=== PATIENT | female | born 1950 | race Caucasian/White ===

== ENCOUNTER 2017-09-18 06:34 | Day surgery (SDC) | payer MEDICARE, OTHER ==
[~2017-09-18] VITALS: Ht 154.9 cm; Wt 94.3 kg
[~2017-09-18 06:34] MED LIST: Acetaminophen1 EAC2 PO; Aspir 8181 MG PO; Aspir-Trin325 MG PO; CIPR500 PO; FELO5CR PO; Felodipine ER10 MG PO; Glucophage1000 MG PO; Humalog100 UNIT/1 SC; IBRANCE125 MG PO; INSDET100 SC; INSUASPI SC; INSULIN; Iron Supplemen325 MG PO; LEVSOD50 PO; LEVSOD75 PO; LIRA0.6P SC; LOSA50 PO; LOSARTAN POTAS100 MG PO; LOVA20 PO; LOVA40; METF500 PO; METF500C PO; METR500 PO; PANT40; PANT40 PO; POTCHL10ER PO; THYR60 PO; TRIHYD253A PO; TRIHYD253B PO; VENL150ER PO; VENL25 PO
[2017-09-18] MEDS ORDERED: Faslodex250 MG/5 M (07:03)
[2017-09-18] MEDS ORDERED: XGEVA120 MG/1.7 (07:03)
[2017-09-18] MEDS ORDERED: ASPI81CH PO (07:04)
[2017-09-18] MEDS ORDERED: LOVA40 PO (07:04)
[2017-09-18] MEDS ORDERED: INSDET100 (07:05)
== END 2017-09-18 09:02 | disposition home or self-care (01) ==
LOC: ORSCSDS 06:34
PROVIDERS: Ophthalmology
PROC: 08RJ3JZ Replacement of Right Lens with Synthetic Substitute, Percutaneous Approach (ICD-10-PCS; principal; 2017-09-18 08:00)
DX: H25.11 Age-related nuclear cataract, right eye (principal); E11.9 Type 2 diabetes mellitus without complications; I10 Essential (primary) hypertension; E03.9 Hypothyroidism, unspecified; Z79.4 Long term (current) use of insulin; Z79.899 Other long term (current) drug therapy
CPT/HCPCS: 82947; J2250; J3010; J3301; J7040; V2632

== ENCOUNTER 2017-12-04 06:19 | Day surgery (SDC) | payer MEDICARE, OTHER ==
[~2017-12-04] VITALS: Ht 154.9 cm; Wt 92.7 kg
[~2017-12-04 06:19] MED LIST changes: +ASPI81CH PO; +Faslodex250 MG/5 M; +INSDET100; +LOVA40 PO; +XGEVA120 MG/1.7
== END 2017-12-04 08:07 | disposition home or self-care (01) ==
LOC: ORSCSDS 06:19
PROVIDERS: Ophthalmology
PROC: 08RK3JZ Replacement of Left Lens with Synthetic Substitute, Percutaneous Approach (ICD-10-PCS; principal; 2017-12-04 07:30)
DX: H25.12 Age-related nuclear cataract, left eye (principal); E11.9 Type 2 diabetes mellitus without complications; I10 Essential (primary) hypertension; E03.9 Hypothyroidism, unspecified; Z79.4 Long term (current) use of insulin; Z79.899 Other long term (current) drug therapy
CPT/HCPCS: 82947; J2250; J3301; J7040; V2632

== ENCOUNTER → 2018-08-04 | Outpatient (CLI) | payer MEDICARE, OTHER | END | disposition home or self-care (01) | LOC: LAB SHORT 12:03 → LAB EV 12:03 | DX: N39.0 Urinary tract infection, site not specified (principal) | CPT/HCPCS: 87086 ==

== ENCOUNTER 2020-06-18 03:44 | Inpatient (IN) | payer MEDICARE ==
[~2020-06-18] VITALS: Ht 154.9 cm; Wt 94.0 kg
[~2020-06-18 03:44] MED LIST changes: -ASPI81CH PO; -Faslodex250 MG/5 M; -IBRANCE125 MG PO; -INSDET100; -LOSA50 PO; -LOVA40 PO; -METF500C PO; -PANT40; -TRIHYD253B PO; -XGEVA120 MG/1.7
[2020-06-18 04:11] LABS: BASOPHILS ABSOLUTE AUTO 0.08 K/mm3 (0.00-0.23); BASOPHILS PERCENT AUTO 1 % (0-2); EOSINOPHILS ABSOLUTE AUTO 0.01 K/mm3 (0.00-0.68); EOSINOPHILS PERCENT AUTO 0 % (0-6); Hematocrit 24.7 % (33.0-51.0); Hemoglobin 7.5 g/dL (11.5-16.0); IMMATURE GRAN ABSOLUTE AUTO 0.05 K/mm3 (0.00-0.10); IMMATURE GRAN PERCENT AUTO 1 % (0-1); LYMPHOCYTES ABSOLUTE AUTO 0.85 K/mm3 (0.84-5.20); LYMPHOCYTES PERCENT AUTO 11 % (21-46); MONOCYTES ABSOLUTE AUTO 0.89 K/mm3 (0.16-1.47); MONOCYTES PERCENT AUTO 12 % (4-13); Mean Corpuscular HGB 35.2 pg (26.0-34.0); Mean Corpuscular HGB Conc 30.4 g/dL (31.5-36.5); Mean Corpuscular Volume 116 fL (80-100); Mean Platelet Volume 11.4 fL (9.1-12.4); NEUTROPHILS ABSOLUTE AUTO 5.85 K/mm3 (1.96-9.15); NEUTROPHILS PERCENT AUTO 76 % (41-73); NRBC ABSOLUTE 0.05 K/mm3 (0.00-0.02); NRBC Auto 0.6 /100 WBC (0.0-0.2); Platelet Count 207 K/mm3 (150-400); RDW Coefficient Variation 16.6 % (11.7-14.2); RDW Standard Deviation 71.6 fL (35.1-46.3); Red Blood Cell Count 2.13 M/mm3 (3.80-5.20); White Blood Cell Count 7.73 K/mm3 (4.00-11.30)
[2020-06-18 04:32] LABS: Alanine Aminotransfer (ALT/SGP 40 U/L (12-78); Albumin, Blood 3.1 g/dL (3.4-5.0); Albumin/Globulin Ratio 0.6 (0.8-1.8); Alk Phos 255 U/L (50-136); Anion Gap 5 mmol/L (6-16); Aspartate Aminotrans (AST/SGOT 59 U/L (12-37); Bilirubin, Total 0.9 mg/dL (0.1-1.0); Blood Urea Nitrogen 24 mg/dL (8-24); Bun/Creatinine Ratio 15.7 (12.0-20.0); CO2, Blood 24 mmol/L (21-32); Calcium, Blood 8.6 mg/dL (8.5-10.1); Chloride, Blood 111 mmol/L (98-108); Creatinine, Blood 1.53 mg/dL (0.40-1.00); Globulin, Blood 4.8 g/dL (2.2-4.0); Glomerular Filtration Rate 35 (60-); Glucose, Blood 134 mg/dL (70-99); Sodium, Blood 140 mmol/L (136-145); Total Protein, Blood 7.9 g/dL (6.4-8.2); Troponin I <0.015 ng/mL (0.000-0.040)
[2020-06-18] MEDS ORDERED: FOLBIC PO (13:57)
[2020-06-18] MEDS ORDERED: POTCHL10ER PO (13:59)
[2020-06-18] MEDS ORDERED: LOSARTAN POTAS100 M1 PO (14:01)
[2020-06-18] MEDS ORDERED: LEVSOD100 PO (14:01)
[2020-06-18] MEDS ORDERED: PANT40 PO (14:02)
[2020-06-18] MEDS ORDERED: VENL150ER PO (14:02)
[2020-06-18] MEDS ORDERED: Felodipine ER10 MG PO (14:03)
[2020-06-18] MEDS ORDERED: GLUCOPHAGE1000 M1 PO (14:03)
[2020-06-18] MEDS ORDERED: DYAZIDE 37.5-21 EACH PO (14:04)
[2020-06-18] MEDS ORDERED: IBRANCE125 MG PO (14:05)
[2020-06-18] MEDS ORDERED: XGEVA120 MG/1.1 SC (14:08)
[2020-06-18] MEDS ORDERED: FASLODEX250 MG/5 M IM (14:10)
[2020-06-18] MEDS ORDERED: LOVA40 PO (14:11)
[2020-06-18] MEDS ORDERED: ASPIR 8181 M1 PO (14:11)
[2020-06-18] MEDS ORDERED: LEVEMIR100 UNIT/1 SC (14:12)
[2020-06-18] MEDS ORDERED: NOVOLOG FL100 UNIT/3 SC (14:17)
[2020-06-18] MEDS ORDERED: PRESERVISION A1 EACH PO (14:21)
[2020-06-18] MEDS ORDERED: ALPR.25 PO (14:58)
--- NOTE | 2020-06-18 18:52 | NUR ---
SHIFT NOTE PT ARRIVED FROM ER THIS EVENING WITH ACUTE ON CHRONIC COPD EXACERBATION AND RESP FAILURE. PT BREATHING WITH PURSED LIPS, SKIN PWD AND INTACT. ANGI OLIVERA FULL SENTENCES, ARRIVES ON 3L 02 VIA IA. DENIES CP. REPORTS SOB BEGAN A FEW DAYS AGO BUT HAS BEEN STEADILY PROGRESSING FOR A FEW WEEKS. VSS. MEDICATION LIST IS UPDATED PER HOME LIST. SOME 2+ EDEMA NOTED TO BLE, SKIN PINK AND DRY. GOOD CAP REFILL ALL 4 EXTREMETIES. PT A/O X4.
--- NOTE | 2020-06-19 03:40 | NUR ---
SHIFT SUMMARY RECIEVED REPORT FROM TRACIE MULLINS, PCU. ARRIVED TO MEDICAL UNIT VIA WHEELCHAIR @ 2206; MINIMAL TX ASSISTANCE REQUIRED. ORIENTED TO NEW ROOM/SURROUNDINGS AND CALL SYSTEM. A/O, ABLE TO MAKE NEEDS KNOWN. COOPERATIVE WITH CARES. CALLS AND ANSWERS QUESTIONS APPROPRIATELY. NO C/O PAIN/DISCOMFORT. REMAINS ON 2L VIA NC WITH SPO2 >90%, BECOMES DYSPNEIC WITH TRANSFERS; HOWEVER RECOVERS QUICKLY. DID NOT APPEAR TO REST MUCH OVERNIGHT. VSS/AFEBRILE. NO ACUTE CHANGES NOTED. BED REMAINS IN LOWEST POSITION. CALL LIGHT AND BELONGINGS WITHIN REACH. WCTM. REPORT TO JANE MULLINS.
[2020-06-19 05:48] LABS: Hemoglobin 8.3 g/dL (11.5-16.0); Mean Corpuscular HGB 34.4 pg (26.0-34.0); Mean Corpuscular HGB Conc 30.7 g/dL (31.5-36.5); Mean Corpuscular Volume 112 fL (80-100); Mean Platelet Volume 11.7 fL (9.1-12.4); NRBC ABSOLUTE 0.06 K/mm3 (0.00-0.02); NRBC Auto 0.4 /100 WBC (0.0-0.2); Platelet Count 206 K/mm3 (150-400); RDW Coefficient Variation 22.5 % (11.7-14.2); RDW Standard Deviation 91.6 fL (35.1-46.3); Red Blood Cell Count 2.41 M/mm3 (3.80-5.20); White Blood Cell Count 14.66 K/mm3 (4.00-11.30)
[2020-06-19 06:16] LABS: Calcium, Blood 8.3 mg/dL (8.5-10.1); Creatinine, Blood 1.71 mg/dL (0.40-1.00); Potassium, Blood 4.8 mmol/L (3.5-5.5)
--- NOTE | 2020-06-19 16:33 | NUR ---
ECHOCARDIOGRAM COMPLETED
--- NOTE | 2020-06-19 18:41 | NUR ---
SHIFT SUMMARY- PT STATED SHE FEELS MUCH BETTER TODAY, PT BECOMES VERY OUT OF BREATH WITH TRIPS TO THE BATHROOM AND OFTEN DOES NOT GO WHEN SHE GETS THERE. PT DID VOID THIS EVENING 500ML OF URINE. IV LASIX GIVEN EARLIER IN THE SHIFT AND NEW OT DOSE FOR THIS EVENING, PT SITTING UP IN BED, CALL LIGHT IN REACH SPOUSE AT THE BEDSIDE. PT ALERT AND ORIETNTED 1PA TO THE BATHROOM. PT HAD AN ECHO THIS AFTERNOON.
--- NOTE | 2020-06-20 03:38 | NUR ---
SHIFT SUMMARY A/O, ABLE TO MAKE NEEDS KNOWN. COOPERATIVE WITH CARE. CALLS AND ANSWERS QUESTIONS APPROPRIATELY. NO C/O PAIN/DISCOMFORT. REMAINS ON 2L VIA NC; WITH SPO2 >90%; RT INVOLVED IN CARE. CONTINUES TO HAVE DYSPNEIC EPISODES WHEN GETTING UP TO THE BATHROOM; DOES RECOVER QUICKLY. REQUIRES 1P SBA TO BATHROOM. VSS/AFEBRILE. DID NOT APPEAR TO REST OVERNGIHT. NO ACUTE CHANGES NOTED OVERNIGHT. BED REMAINS IN LOWEST POSITION. CALL LIGHT AND BELONGINGS WITHIN REACH. WCTM. REPORT TO ONCOMING RN.
[2020-06-20 06:30] LABS: Bun/Creatinine Ratio 31.4 (12.0-20.0); Calcium, Blood 8.4 mg/dL (8.5-10.1); Creatinine, Blood 1.75 mg/dL (0.40-1.00); Potassium, Blood 4.3 mmol/L (3.5-5.5)
--- NOTE | 2020-06-20 18:35 | NUR ---
SHIFT SUMMARY EDDIE HAD EX- VISIT HER TODAY. SBA TO BR, CALLED APPROPRIATELY. EDEMATOUS BLE, GOT TWO ONE TIME DOSES IV LASIX WITH FAIRLY GOOD OUTPUT. VERY DYSPNEIC ON EXERTION TO GO TO BATHROOM, BUT NO DESATS BELOW 90%, SO CONTINUES ON ROOM AIR. TELE SHOWED SINUS TACH. TOOK MEDS PRESCRIBED. CALL LIGHT IN REACH, [facility]
--- NOTE | 2020-06-21 04:47 | NUR ---
SHIFT SUMMARY AOX4. VSS. TELE ST c PAC @111. DENIES PAIN OR N/V. VERY DYSPNIC c AMBULATION TO RESTROOM. SPO2 >90% ON RA. LUNGS HAVE EXP WHEEZES IN UPPER LOBES & CRACKLES IN BASES. DENIES DYSPNEA WHEN @REST. +2 EDEMA BLE. UP TO RESTROOM c 1 ASSIST & FWW. HAD 2200ML URINE OUTPUT. HS CBG @238. CALL LIGHT IN REACH.
[2020-06-21 05:31] LABS: BASOPHILS ABSOLUTE AUTO 0.05 K/mm3 (0.00-0.23); BASOPHILS PERCENT AUTO 0 % (0-2); EOSINOPHILS PERCENT AUTO 0 % (0-6); Hematocrit 25.9 % (33.0-51.0); Hemoglobin 8.2 g/dL (11.5-16.0); IMMATURE GRAN ABSOLUTE AUTO 0.64 K/mm3 (0.00-0.10); IMMATURE GRAN PERCENT AUTO 5 % (0-1); LYMPHOCYTES ABSOLUTE AUTO 0.62 K/mm3 (0.84-5.20); LYMPHOCYTES PERCENT AUTO 5 % (21-46); MONOCYTES ABSOLUTE AUTO 1.04 K/mm3 (0.16-1.47); MONOCYTES PERCENT AUTO 8 % (4-13); Mean Corpuscular HGB Conc 31.7 g/dL (31.5-36.5); Mean Corpuscular Volume 108 fL (80-100); Mean Platelet Volume 11.4 fL (9.1-12.4); NEUTROPHILS ABSOLUTE AUTO 10.75 K/mm3 (1.96-9.15); NEUTROPHILS PERCENT AUTO 82 % (41-73); NRBC ABSOLUTE 0.34 K/mm3 (0.00-0.02); NRBC Auto 2.6 /100 WBC (0.0-0.2); Platelet Count 240 K/mm3 (150-400); RDW Coefficient Variation 21.1 % (11.7-14.2); RDW Standard Deviation 82.6 fL (35.1-46.3); Red Blood Cell Count 2.41 M/mm3 (3.80-5.20)
[2020-06-21 06:11] LABS: Calcium, Blood 8.6 mg/dL (8.5-10.1); Creatinine, Blood 1.76 mg/dL (0.40-1.00); Potassium, Blood 3.9 mmol/L (3.5-5.5)
--- NOTE | 2020-06-21 10:49 | NUR ---
PHYSICIAN NOTIFICATION/PT TACHYCARDIA THIS RN NOTIFIED DR. SOLOMON OF PT EXPERIENCING TACHYCARDIA OF 157 AND BP OF 177/69 AROUND 1030. THIS RN RECIEVED ORDERS FOR STAT EKG AND RESIDENT CAME TO SEE PT. EKG OBTAINED BY [facility]. THIS RN RECIEVED AN ORDER FOR PROCARDIA XL PER EMAR. THIS RN WILL CONTINUE TO MONITOR PT STATUS.
--- NOTE | 2020-06-21 17:26 | NUR ---
Initial spiritual care note: Mrs. Pearson was pleasantly dismissive of machine tack puller visit. She said she is feeling better and is hopeful for return to baseline. No concerns present. I will remain available.
--- NOTE | 2020-06-21 19:15 | NUR ---
SHIFT SUMMARY PT IS AOX4. PT DENIES N/V, PAIN. PT EXHIBITS SOB WITH EXERTION. PT IS ONE PERSON ASSIST WITH FWW. PT WORKED WITH PHYSICAL THERAPY THIS AM, BUT THE SESSION WAS BRIEF DUE TO PT HR OF 160S AND BP OF 180/60S. SEE NOTE. EKG OBTAINED AND PT FOUND TO BE IN SVT. PT HR STABLE THIS THERESA IN 90S-100S. PT IN THROUGHOUT SHIFT. PT TELE RUNNING AT SINUS TACH 101. PT IS IN BED, CALL LIGHT IN REACH, BED IN LOW POSITION.
--- NOTE | 2020-06-22 04:23 | NUR ---
SHIFT SUMMARY NO ACUTE CHANGES THIS SHIFT. AOX4. VSS. TELE NSR c PAC @97. DENIES PAIN, N/V. STATES "BREATHING IS BETTER", STILL IS DYSPNIC c AMBULATION. SPO2 >90% ON RA. E/U RESPIRATIONS @REST. LUNGS ARE DIM c CRACKLES IN BASES. PLAN TO POSSIBLY DC TODAY. CALL LIGHT IN REACH, MAKES NEEDS KNOWN.
[2020-06-22 05:41] LABS: Hematocrit 26.2 % (33.0-51.0); Hemoglobin 8.1 g/dL (11.5-16.0); Mean Corpuscular HGB 33.8 pg (26.0-34.0); Mean Corpuscular HGB Conc 30.9 g/dL (31.5-36.5); Mean Corpuscular Volume 109 fL (80-100); Mean Platelet Volume 10.8 fL (9.1-12.4); NRBC ABSOLUTE 0.68 K/mm3 (0.00-0.02); Platelet Count 239 K/mm3 (150-400); RDW Standard Deviation 83.4 fL (35.1-46.3); White Blood Cell Count 13.66 K/mm3 (4.00-11.30)
[2020-06-22 05:59] LABS: Bun/Creatinine Ratio 34.1 (12.0-20.0); Calcium, Blood 8.9 mg/dL (8.5-10.1); Creatinine, Blood 1.79 mg/dL (0.40-1.00); Potassium, Blood 4.3 mmol/L (3.5-5.5)
[2020-06-22 06:12] LABS: BAND PERCENT MAN 1 % (0-8); BASOPHILS PERCENT MAN 0 % (0-2); EOSINOPHILS PERCENT MAN 0 % (0-6); LYMPHOCYTES ABSOLUTE MAN 0.68 K/mm3 (0.84-5.20); LYMPHOCYTES PERCENT MAN 5 % (21-46); MONOCYTES ABSOLUTE MAN 1.09 K/mm3 (0.16-1.47); MONOCYTES PERCENT MAN 8 % (4-13); NEUTROPHILS ABSOLUTE MAN 11.88 K/mm3 (1.96-9.15); SEG NEUTROPHILS PERCENT MAN 86 % (41-73); TOTAL CELLS COUNTED 100
[2020-06-22] MEDS ORDERED: ALBU90OI INH (12:32)
[2020-06-22] MEDS ORDERED: FURO40 PO (12:33)
--- NOTE | 2020-06-22 18:55 | NUR ---
DISCHARGE NOTE PT IS AOX4. PT IV REMOVED BY THIS RN. PT ASSISTED INTO HOME CLOTHING BY . THIS RN REVIEWED DC INSTRUCTIONS WITH PT AND PT VERBALIZED UNDERSTANDING. BELONGINGS WITH PT ON DC. PT ASSISTED INTO WHEELCHAIR AND LEFT UNIT AT APPROXIMATELY 1845.
== END 2020-06-22 18:55 | disposition home or self-care (01) | DRG 291 ==
LOC: ER 03:44 → ERHOLD 05:55 → PCU 15:41 → MEDS 22:06
PROVIDERS: Emergency Medicine; Family Medicine; Hospitalist; ADMIT Internal Medicine
DX: I13.0 Hypertensive heart and chronic kidney disease with heart failure and stage 1 through stage 4 chronic kidney disease, or unspecified chronic kidney disease (principal); I50.31 Acute diastolic (congestive) heart failure; J96.01 Acute respiratory failure with hypoxia; J18.9 Pneumonia, unspecified organism; J44.1 Chronic obstructive pulmonary disease with (acute) exacerbation; J44.0 Chronic obstructive pulmonary disease with (acute) lower respiratory infection; Z20.828 Contact with and (suspected) exposure to other viral communicable diseases; N18.30 Chronic kidney disease, stage 3 unspecified; E11.22 Type 2 diabetes mellitus with diabetic chronic kidney disease; D64.9 Anemia, unspecified; E03.9 Hypothyroidism, unspecified; E66.01 Morbid (severe) obesity due to excess calories; I27.20 Pulmonary hypertension, unspecified; Z79.4 Long term (current) use of insulin; Z85.3 Personal history of malignant neoplasm of breast
CPT/HCPCS: 36415; 36430; 71045; 80048; 80053; 82947; 83880; 84145; 84484; 85025; 85027; 86850; 86900; 86901; 86923; 93005; 93010; 93306; 94640; 94644; 94760; 96374; 96376; 97116; 97162; 97530; 99285-25; A9270; A9270-GY; C9113; G0008; J0696; J1644; J1815; J1940; J2930; J7512; P9016; Q2038; U0004

== ENCOUNTER 2020-08-07 09:23 | Inpatient (IN) | payer MEDICARE, OTHER ==
[~2020-08-07] VITALS: Ht 154.9 cm; Wt 108.2 kg
[~2020-08-07 09:23] MED LIST changes: +ALBU90OI INH; +ALPR.25 PO; +ASPIR 8181 M1 PO; +DYAZIDE 37.5-21 EACH PO; +FASLODEX250 MG/5 M IM; +FOLBIC PO; +FURO40 PO; +GLUCOPHAGE1000 M1 PO; +IBRANCE125 MG PO; +LEVEMIR100 UNIT/1 SC; +LEVSOD100 PO; +LOSARTAN POTAS100 M1 PO; +LOVA40 PO; +NOVOLOG FL100 UNIT/3 SC; +PRESERVISION A1 EACH PO; +XGEVA120 MG/1.1 SC
[2020-08-07 10:41] LABS: Albumin/Globulin Ratio 0.7 (0.8-1.8); Bilirubin, Total 0.7 mg/dL (0.1-1.0); Bun/Creatinine Ratio 16.6 (12.0-20.0); Calcium, Blood 8.6 mg/dL (8.5-10.1); Creatinine, Blood 1.51 mg/dL (0.40-1.00); Globulin, Blood 4.2 g/dL (2.2-4.0); Potassium, Blood 3.7 mmol/L (3.5-5.5); Total Protein, Blood 7.2 g/dL (6.4-8.2)
[2020-08-07 10:52] LABS: Troponin I 0.57 ng/mL (0.000-0.040)
[2020-08-07] MEDS ORDERED: ALPR.25 PO (11:00)
[2020-08-07] MEDS ORDERED: [UNRECOGNIZED DRUG - REMARK] (11:03)
[2020-08-07 11:32] LABS: BASOPHILS ABSOLUTE AUTO 0.01 K/mm3 (0.00-0.23); BASOPHILS PERCENT AUTO 1 % (0-2); EOSINOPHILS PERCENT AUTO 0 % (0-6); Hematocrit 20.9 % (33.0-51.0); Hemoglobin 6.7 g/dL (11.5-16.0); IMMATURE GRAN ABSOLUTE AUTO 0.01 K/mm3 (0.00-0.10); IMMATURE GRAN PERCENT AUTO 1 % (0-1); LYMPHOCYTES ABSOLUTE AUTO 0.18 K/mm3 (0.84-5.20); LYMPHOCYTES PERCENT AUTO 9 % (21-46); MONOCYTES ABSOLUTE AUTO 0.13 K/mm3 (0.16-1.47); MONOCYTES PERCENT AUTO 7 % (4-13); Mean Corpuscular HGB 34.9 pg (26.0-34.0); Mean Corpuscular HGB Conc 32.1 g/dL (31.5-36.5); Mean Corpuscular Volume 109 fL (80-100); Mean Platelet Volume 12.2 fL (9.1-12.4); NEUTROPHILS ABSOLUTE AUTO 1.63 K/mm3 (1.96-9.15); NEUTROPHILS PERCENT AUTO 83 % (41-73); Platelet Count 127 K/mm3 (150-400); RDW Coefficient Variation 20.8 % (11.7-14.2); RDW Standard Deviation 83.6 fL (35.1-46.3); Red Blood Cell Count 1.92 M/mm3 (3.80-5.20); White Blood Cell Count 1.96 K/mm3 (4.00-11.30)
[2020-08-07] MEDS ORDERED: IBRANCE125 M1 PO (11:46)
[2020-08-07] MEDS ORDERED: METO50ER PO (11:46)
[2020-08-07 12:56] LABS: Percent Saturation 22.2 % (15.0-50.0)
--- NOTE | 2020-08-07 18:05 | NUR ---
PT ARRIVED IN THE UNIT VIA HOSPITAL BED SLIDE SHEET FOR TRANSFER, REPORT RECEIVED FROM HARPREET LOZANO. PT IS HERE FOR ACUTE DIASTOLIC CHF, PT WAS ON 4L OF O2 UPON ARRIVAL SAT ABOVE 92%, PT SOB HAS EXP WHEEZES BILAT, CRACKLES ON RIGHT LOBE, PT ABLE TO TOLERATE BUT LATER REQUESTED TO GET BACK ON BIPAP. WAS ABLE TO TAKE BLOOD PRESSURE MEDS WITHOUT ANY ISSUES, BP SYSTOLIC ELEVATED AT 190'S, PT WAS GIVEN HYDRALAZINE DOSE IN THE ER. HRR ST AT 100'S, AFEBRILE. PT HAS 2+ PITTING EDEMA ON BLE, ANOTHER DOSE OF LASIX 40MG WAS GIVEN. PT USES BEDPAN FOR NOW FOR TOILETING SINCE UNABLE TO TOLERATED GETTING UP IN THE COMMODE YET, ATTENDS IN PLACE. DENIES ANY CHEST PAIN AT THIS TIME. ALERT AND ORIENTED AT BASELINE. ABLE TO MAKE NEEDS KNOWN, CALLS APPROPRIATELY, WILL MONITOR
--- NOTE | 2020-08-07 21:38 | NUR ---
ASSUMED CARE OF PATIENT AT APPROXIMATELY 1900 FROM VARGAS Colby RN. PATIENT ALERT AND ORIENTED; ONLY ABLE TO SPEAK IN SHORT SENTENCES AND NOT ABLE TO EAT DINNER DUE TO SHORTNESS OF BREATH WHILE LAYING IN BED; PATIENT NEEDED TO BE PLACED ON BIPAP WHILE TURNING TO GET ON BEDPAN; TOO SHORT OF BREATH TO GET UP. PATIENT DENIES PAIN, DIZZINESS AND NAUSEA. NSR ON TELE; OXYGEN SATURATION ABOVE 90% ON BIPAP 05/10; 25% FIO2 OR 4LPM VIA NC. 2X PIV S/L. AUTO BODY MECHANIC APPRENTICE COMPLETED CONSENTS, ADMISSION HX AND MEDICATION REC. PATIENT CURRENTLY RESTING IN BED; CALL LIGHT IN REACH; BED IN LOWEST POSISTION; WILL CONTINUE TO MONITOR AND ASSESS UNTIL END OF SHIFT.
--- NOTE | 2020-08-08 01:12 | NUR ---
PATIENT HYPERTENSIVE AFTER PRN HYDRALAZINE IV; DR. BECKER NOTIFIED; ORDERS FOR PRN LABETOLOL. PATIENT ANXIOUS; REPROTS TAKES XANAX AT HOME; ORDERS FOR IV ATIVAN WHILE ON BIPAP. PATIENT SHORT OF BREATH USING BEDPAN EVERY 20-30 MINUTES; ORDER FOR PUREWICK WHILE SHORT OF BREATH USING BIPAP. PATIENT HAD RYTHYM CHANGE FOR ABOUT 15 MINUTES ([phone]) ATRIAL TACHYCARDIA.
[2020-08-08 02:06] LABS: BASOPHILS ABSOLUTE AUTO 0.02 K/mm3 (0.00-0.23); BASOPHILS PERCENT AUTO 1 % (0-2); EOSINOPHILS ABSOLUTE AUTO 0.01 K/mm3 (0.00-0.68); EOSINOPHILS PERCENT AUTO 0 % (0-6); Hematocrit 25.5 % (33.0-51.0); Hemoglobin 8.3 g/dL (11.5-16.0); Mean Corpuscular HGB 33.6 pg (26.0-34.0); Mean Corpuscular HGB Conc 32.5 g/dL (31.5-36.5); Mean Platelet Volume 11.2 fL (9.1-12.4); Platelet Count 122 K/mm3 (150-400); RDW Coefficient Variation 23.2 % (11.7-14.2); RDW Standard Deviation 87.4 fL (35.1-46.3); Red Blood Cell Count 2.47 M/mm3 (3.80-5.20); White Blood Cell Count 2.37 K/mm3 (4.00-11.30)
[2020-08-08 02:07] LABS: IMMATURE GRAN ABSOLUTE AUTO 0.02 K/mm3 (0.00-0.10); IMMATURE GRAN PERCENT AUTO 1 % (0-1); LYMPHOCYTES ABSOLUTE AUTO 0.16 K/mm3 (0.84-5.20); LYMPHOCYTES PERCENT AUTO 7 % (21-46); MONOCYTES ABSOLUTE AUTO 0.12 K/mm3 (0.16-1.47); MONOCYTES PERCENT AUTO 5 % (4-13); Mean Corpuscular Volume 103 fL (80-100); NEUTROPHILS ABSOLUTE AUTO 2.04 K/mm3 (1.96-9.15); NEUTROPHILS PERCENT AUTO 86 % (41-73)
[2020-08-08 02:38] LABS: Magnesium, Blood 1.5 mg/dL (1.6-2.4)
[2020-08-08 02:39] LABS: Albumin/Globulin Ratio 0.7 (0.8-1.8); Bun/Creatinine Ratio 17.6 (12.0-20.0); Calcium, Blood 8.2 mg/dL (8.5-10.1); Creatinine, Blood 1.53 mg/dL (0.40-1.00); Globulin, Blood 4.3 g/dL (2.2-4.0); Phosphorus, Blood 2.7 mg/dL (2.5-4.9); Potassium, Blood 3.3 mmol/L (3.5-5.5); Total Protein, Blood 7.3 g/dL (6.4-8.2)
[2020-08-08 02:48] LABS: Troponin I 0.733 ng/mL (0.000-0.040)
--- NOTE | 2020-08-08 06:27 | NUR ---
PATIENT SLEPT ABOUT EIGHT HOURS LAST NIGHT. PUREWICK IN PLACE DRAINING WELL. BLOOD PRESSURE IMPOVED. 160'S SBP. PATIENT'S MAG WAS 1.[address] BECKER NOTIFED; ORDERS RECIEVED. PATIENT SLEPT WITH BIPAP FOR MOST OF THE NIGHT.
[2020-08-08 11:12] LABS: Hematocrit 26.4 % (33.0-51.0); Hemoglobin 8.5 g/dL (11.5-16.0)
--- NOTE | 2020-08-08 12:14 | NUR ---
Echocardiogram performed.
[2020-08-08 17:17] LABS: Hematocrit 24.7 % (33.0-51.0); Hemoglobin 7.9 g/dL (11.5-16.0)
--- NOTE | 2020-08-08 18:28 | NUR ---
PT SUMMARY: PT REMAINED ALERT AND ORIENTED, VITALS HRR SR 90'S, BP SYSTOLIC 140-150'S, SATS ABOVE 90% ON 4L OF O2 ALTERNATING BIPAP WITH 35% FIO2 PT DESATS TO 86% WITH EXERTION (MOVING AND TURNING IN BED) PT ABLE TO RECOVERS QUICK. AFEBRILE. PT STILL HAS BILAT WHEEZING DUONEB ORDERED SCHEDULE Q4HRS, ADDITIONAL 40MG DOSE OF LASIX WAS GIVEN TODAY PT HAD ALMOST 2L URINE OUTPUT, PUREWICK CHANGED FOR THE SHIFT, DRAINING VIA WALL SUCTION. ECHO DONE TODAY PT SHOWS EF 61%, DR RAMOS ALSO SAW PT TODAY MADE SOME MEDICATION CHANGES. PT ON 1.5L FLUID RESTRICTION PT COMPLIANT. NO BM TODAY UNABLE TO COLLECT STOOL SAMPLE, PT WITH DECREASE APPETITE OFFERED GLUCERNA FOR LUNCH. PT HAS BEEN IN BED ALL SHIFT REPOSTIONED Q2 HRS. DENIES ANY PAIN FOR THE SHIFT. PT NOW RESTING WITH BIPAP ON, CALL LIGHTS IN REACH, WILL REPORT TO ONCOMING SHIFT
[2020-08-09 04:15] LABS: BASOPHILS ABSOLUTE AUTO 0.04 K/mm3 (0.00-0.23); BASOPHILS PERCENT AUTO 2 % (0-2); EOSINOPHILS ABSOLUTE AUTO 0.02 K/mm3 (0.00-0.68); EOSINOPHILS PERCENT AUTO 1 % (0-6); Hemoglobin 7.6 g/dL (11.5-16.0); Mean Corpuscular HGB 32.8 pg (26.0-34.0); Mean Corpuscular HGB Conc 31.7 g/dL (31.5-36.5); Mean Corpuscular Volume 103 fL (80-100); Mean Platelet Volume 10.7 fL (9.1-12.4); Platelet Count 132 K/mm3 (150-400); RDW Standard Deviation 86.8 fL (35.1-46.3); Red Blood Cell Count 2.32 M/mm3 (3.80-5.20); White Blood Cell Count 2.58 K/mm3 (4.00-11.30)
[2020-08-09 04:17] LABS: IMMATURE GRAN ABSOLUTE AUTO 0.01 K/mm3 (0.00-0.10); IMMATURE GRAN PERCENT AUTO 0 % (0-1); LYMPHOCYTES ABSOLUTE AUTO 0.24 K/mm3 (0.84-5.20); LYMPHOCYTES PERCENT AUTO 9 % (21-46); MONOCYTES ABSOLUTE AUTO 0.21 K/mm3 (0.16-1.47); MONOCYTES PERCENT AUTO 8 % (4-13); NEUTROPHILS ABSOLUTE AUTO 2.06 K/mm3 (1.96-9.15); NEUTROPHILS PERCENT AUTO 80 % (41-73)
[2020-08-09 04:30] LABS: Albumin, Blood 2.9 g/dL (3.4-5.0); Anion Gap 4 mmol/L (6-16); Blood Urea Nitrogen 31 mg/dL (8-24); Bun/Creatinine Ratio 20.1 (12.0-20.0); CO2, Blood 32 mmol/L (21-32); Calcium, Blood 8.3 mg/dL (8.5-10.1); Chloride, Blood 106 mmol/L (98-108); Creatinine, Blood 1.54 mg/dL (0.40-1.00); Glomerular Filtration Rate 35 (60-); Glucose, Blood 148 mg/dL (70-99); Phosphorus, Blood 2.8 mg/dL (2.5-4.9); Potassium, Blood 3.5 mmol/L (3.5-5.5); Sodium, Blood 142 mmol/L (136-145)
--- NOTE | 2020-08-09 05:16 | NUR ---
SHIFT SUMMARY PT SLEPT T/O SHIFT. PT ALERT AND ORIENTED X 4. OXYGEN SATURATION MAINTAINED ABOVE 92% ON 5 L OF OXYGEN VIA NC AND BIPAP AT 40% FIO2. HR STABLE. BP STABLE. PT REPORTS NO CP OR PRESSURE. PUREWICK IN PLACE D/T PT'S INCREASING SOB. PT ABLE TO TURN SELF IN BED NEEDED. WILL CONTINUE TO MONITOR UNTIL REPORT GIVEN TO DAYSHIFT RN.
--- NOTE | 2020-08-09 06:17 | NUR ---
ARIANACK CHANGED PUREWICK CHANGED AT 0600
[2020-08-09 13:13] LABS: Total Protein, Blood 7.4 g/dL (6.4-8.2)
[2020-08-09 13:51] LABS: International Normalized Ratio 1.17; Prothrombin Time Results 12.4 Sec (9.7-11.5)
[2020-08-09 15:19] LABS: Influenza A, PCR Negative (NEGATIVE); Influenza B, PCR Negative (NEGATIVE); Resp Syncytial Virus, PCR Negative (NEGATIVE); SARS-Cov-2 (COVID-19) PCR, MMC Negative (NEGATIVE)
[2020-08-09 17:28] LABS: Automated BF RBC Count 0.002 M/mm3 (0-0); Body Fluid WBC Count 170 /mm3 (0-999)
[2020-08-09 17:37] LABS: Albumin, Body Fluid 1.7 g/dL; Glucose, Body Fluid 187 mg/dL; Lactate Dehydrogenase, Body Fl 117 U/L
[2020-08-09 18:00] LABS: Appearance, Body Fluid Hazy (Clear); Color, Body Fluid Yellow (None-Yellow); Total Cell Count, Body Fluid 100
--- NOTE | 2020-08-09 18:19 | NUR ---
PATIENT ALERT AND ORIENTED THIS SHIFT, PATIENT WAS VISIBLY SHORT OF BREATH THIS SHIFT. PATIENT'S O2 NEEDS INCREASED THIS AFTERNOON, WENT FROM 5 L IN LOW 90S AT START OF SHIFT TO 88-89% AND TURNED UP TO 6-7 L TO MAINTAIN LOW 90S. DR. LANTIGUA CONSULTED FOR PULM PERSPECTIVE, DR. LANTIGUA DID THORACENTESIS AT BEDSIDE, SAMPLES SENT TO LAB FOR ANALYSIS. PATIENT TOLERATED WELL, CONSIDERABLE COUGHING NOTED DURING PROCEDURE. 2.5 L OFF, PATIENT ENDORSED FEELING RELIEF IN WORK OF BREATHING POST-THORA. PATIENT IS ABLE TO ASSIST IN REPOSITIONING ON BED, BEDPAN USED TODAY D/T HIGH WORK OF BREATHING AT REST AND LOW ACTIVITY TOLERANCE. PATIENT IS ALERT AND ORIENTED, PLEASANT AND ENGAGED WITH CARE. PLAN IS FOR ANOTHER THORACENTESIS TOMORROW. DR. KIM CONSULTED FOR POSSIBILITY OF MALIGNANCY R/T PLEURAL EFFUSION AND HX OF CANCER.
[2020-08-09 18:57] LABS: Protein, Body Fluid 3.3 g/dL; Triglycerides, Body Fluid 86 mg/dL
[2020-08-10 03:50] LABS: BASOPHILS ABSOLUTE AUTO 0.04 K/mm3 (0.00-0.23); BASOPHILS PERCENT AUTO 1 % (0-2); EOSINOPHILS ABSOLUTE AUTO 0.02 K/mm3 (0.00-0.68); EOSINOPHILS PERCENT AUTO 1 % (0-6); Hematocrit 23.8 % (33.0-51.0); Hemoglobin 7.4 g/dL (11.5-16.0); Mean Corpuscular HGB Conc 31.1 g/dL (31.5-36.5); Mean Corpuscular Volume 106 fL (80-100); Mean Platelet Volume 11.2 fL (9.1-12.4); Platelet Count 131 K/mm3 (150-400); RDW Coefficient Variation 22.8 % (11.7-14.2); RDW Standard Deviation 87.8 fL (35.1-46.3); Red Blood Cell Count 2.24 M/mm3 (3.80-5.20); White Blood Cell Count 2.76 K/mm3 (4.00-11.30)
[2020-08-10 03:55] LABS: IMMATURE GRAN PERCENT AUTO 0 % (0-1); LYMPHOCYTES ABSOLUTE AUTO 0.28 K/mm3 (0.84-5.20); LYMPHOCYTES PERCENT AUTO 10 % (21-46); MONOCYTES ABSOLUTE AUTO 0.21 K/mm3 (0.16-1.47); MONOCYTES PERCENT AUTO 8 % (4-13); NEUTROPHILS ABSOLUTE AUTO 2.21 K/mm3 (1.96-9.15); NEUTROPHILS PERCENT AUTO 80 % (41-73)
[2020-08-10 04:12] LABS: Albumin, Blood 2.6 g/dL (3.4-5.0); Albumin/Globulin Ratio 0.7 (0.8-1.8); Bilirubin, Total 0.6 mg/dL (0.1-1.0); Bun/Creatinine Ratio 20.1 (12.0-20.0); Calcium, Blood 8.1 mg/dL (8.5-10.1); Creatinine, Blood 1.69 mg/dL (0.40-1.00); Globulin, Blood 3.8 g/dL (2.2-4.0); Potassium, Blood 3.6 mmol/L (3.5-5.5); Total Protein, Blood 6.4 g/dL (6.4-8.2)
--- NOTE | 2020-08-10 05:14 | NUR ---
SHIFT SUMMARY PT TO CT AT BEGINNING OF SHIFT. PT ABLE TO STAND AND PIVOT TO STRETCHER. OXYGEN SATURATION MAINTAINED ABOVE 92% ON 5 L OF OXYGEN VIA NC. PT ABLE TO TURN SELF IN BED. HR REMAINED STABLE. BP REMAINED STABLE. PT ALERT AND ORIENTED X 4. WITHIN RANGE FOR FLUID INTAKE, SEE I&O. PUREWICK IN PLACE WITH BRIEF D/T SOB AND URINARY FREQUENCY. PT REPORTS NO CP OR PRESSURE. SITE FOR THORA C/D/I. WILL CONTINUE TO MONITOR UNTIL REPORT GIVEN TO DAYSASIYA RN.
--- NOTE | 2020-08-10 10:23 | NUR ---
PATIENT RETURNED FROM THORACENTESIS, VSS, ALERT AND ORIENTED, NO SIGNS OF ACUTE DISTRESS, WCTM.
--- NOTE | 2020-08-10 13:52 | NUR ---
Supportive Visit Spoke with Bedside RN Pradip and discussed case. Pradip reports Pt has shown improvement since thoracentesis. No concerns reported at this time. Pt resting in chair upon arrival. Pt denies pain at this time. Pt reports breathing has improved since thoracentesis. Pt reports occasional anxiety and has experienced this for many years. Offered therapeutic listening and answered questions. Discussed considering completing an AD with Pt reporting having one at home that she will consider completing. Pt reports no concerns at this time. Palliative Care will remain available.
--- NOTE | 2020-08-10 15:26 | NUR ---
Advance Directive (AD) education conducted. Upon receiving a referral for AD education, I visit patient. Patient expresses interest and states that she has an old form somewhere but never completed it. I hand patient a new form and explain the purpose of the AD, the different sections and the filing process. Patient states that she will work on it with her family at when she is feeling better.
--- NOTE | 2020-08-10 19:55 | NUR ---
NO ACUTE EVENTS THIS SHIFT. PATIENT WENT FOR THORACENTESIS TODAY, PATIENT REPORTED CONTINUED IMPROVEMENT IN WORK OF BREATHING. PATIENT'S WORK OF BREATHING NOTABLY IMPROVED FROM YESTERDAY START OF SHIFT PRIOR TO FIRST THORACENTESIS. THIS SHIFT PATIENT TITRATED DOWN TO 4 L NC, PATIENT ABLE TO TOLERATE AMBULATION WITH WALKER AND X1 ASSIST TO BEDSIDE COMMODE AND UP IN CHAIR WITH MEALS. PATIENT SHOWED GOOD PO INTAKE TODAY, FLUID RESTRICTION FOLLOWED PER ORDERS.
[2020-08-11 03:58] LABS: BASOPHILS ABSOLUTE AUTO 0.03 K/mm3 (0.00-0.23); BASOPHILS PERCENT AUTO 1 % (0-2); EOSINOPHILS ABSOLUTE AUTO 0.03 K/mm3 (0.00-0.68); EOSINOPHILS PERCENT AUTO 1 % (0-6); Hematocrit 23.6 % (33.0-51.0); Hemoglobin 7.3 g/dL (11.5-16.0); IMMATURE GRAN ABSOLUTE AUTO 0.02 K/mm3 (0.00-0.10); IMMATURE GRAN PERCENT AUTO 1 % (0-1); LYMPHOCYTES ABSOLUTE AUTO 0.23 K/mm3 (0.84-5.20); LYMPHOCYTES PERCENT AUTO 10 % (21-46); MONOCYTES ABSOLUTE AUTO 0.18 K/mm3 (0.16-1.47); MONOCYTES PERCENT AUTO 8 % (4-13); Mean Corpuscular HGB 33.2 pg (26.0-34.0); Mean Corpuscular HGB Conc 30.9 g/dL (31.5-36.5); Mean Corpuscular Volume 107 fL (80-100); Mean Platelet Volume 11.3 fL (9.1-12.4); NEUTROPHILS ABSOLUTE AUTO 1.89 K/mm3 (1.96-9.15); NEUTROPHILS PERCENT AUTO 79 % (41-73); Platelet Count 127 K/mm3 (150-400); RDW Coefficient Variation 22.3 % (11.7-14.2); RDW Standard Deviation 87.2 fL (35.1-46.3); White Blood Cell Count 2.38 K/mm3 (4.00-11.30)
[2020-08-11 04:14] LABS: Bun/Creatinine Ratio 20.2 (12.0-20.0); Calcium, Blood 7.9 mg/dL (8.5-10.1); Creatinine, Blood 2.03 mg/dL (0.40-1.00); Potassium, Blood 3.7 mmol/L (3.5-5.5)
--- NOTE | 2020-08-11 05:41 | NUR ---
SHIFT SUMMARY PT A&O X4. VSS. MONITOR SHOWS NSR, HR 60's. SPO2 > 92% ON 4L NC. PT SLEEPING MAJORITY OF SHIFT. TOLERATING SBA TO BSC WELL. NO EVENTS OVER NIGHT.
--- NOTE | 2020-08-11 18:08 | NUR ---
NO ACUTE EVENTS THIS SHIFT. PATIENT ABLE TO AMBULATE TO BATHROOM WITH WALKER AND STANDBY ASSIST, TOLERATING ACTIVITY WELL. PATIENT TITRATED DOWN TO ROOM AIR TODAY, MINIMAL WORK OF BREATHING NOTED. PATIENT WENT FOR ANOTHER THORACENTESIS AGAIN TODAY, VSS ON RETURN TO UNIT. DR GRIFFIN SAW PATIENT AT BEDSIDE. DR. PICHARDO SAW PATIENT AT BEDSIDE AND DISCUSSED PT'S KIDNEY FX AND PLANS FOR DIURESIS. PATIENT AGREEABLE TO PARTICIPATION IN CARE, MOTIVATED TO PARTICIPATE WITH THERAPY, OUT OF BED FOR MEALS AND FOR STRETCHES OF TIME IN BETWEEN WITH SEVERAL REST BREAKS IN BED.
--- NOTE | 2020-08-11 20:35 | NUR ---
CARE ASSUMPTION PT A&O X4. VSS. SPO2 > 92% ON RA. PT DENIES SOB. MONITOR CURRENTLY SHOWS NSR, HR 60's. DISCUSSED DAY SHIFT EPISODE OF AFIB W/ PT W/ PT DENIAL OF HX OF AFIB. PT NOTED TO BE AFIB, HR 120's FROM [phone] TODAY PER TELEMETRY MONITORING. CONVERSION STRIPS PRINTED & PLACED IN CHART.
[2020-08-12 00:21] LABS: Appearance, Urine Hazy (Clear); Bilirubin, Urine Neg (Neg); Blood, Urine Neg (Neg); Color, Urine Yellow (P-Yellow); Glucose Qualitative, Urine Neg (Neg); Ketones, Urine Neg (Neg); Leukocyte Esterase, Urine 3+ (Neg); Nitrite, Urine Neg (Neg); Protein, Urine 2+ (Neg); Specific Gravity, Urine 1.015 (1.003-1.022); Urobilinogen, Urine NORM (Normal)
[2020-08-12 00:33] LABS: Bacteria Few /hpf; Red Blood Cells, Urine Not Seen /hpf (0-2); Squamous Epithelial Cells Rare /hpf (Few); White Blood Cells, Urine TNTC /hpf (0-5)
[2020-08-12 04:04] LABS: BASOPHILS ABSOLUTE AUTO 0.04 K/mm3 (0.00-0.23); BASOPHILS PERCENT AUTO 2 % (0-2); EOSINOPHILS ABSOLUTE AUTO 0.03 K/mm3 (0.00-0.68); EOSINOPHILS PERCENT AUTO 1 % (0-6); Hematocrit 23.9 % (33.0-51.0); Hemoglobin 7.4 g/dL (11.5-16.0); Mean Corpuscular HGB 33.3 pg (26.0-34.0); Mean Corpuscular Volume 108 fL (80-100); Mean Platelet Volume 10.9 fL (9.1-12.4); Platelet Count 132 K/mm3 (150-400); RDW Coefficient Variation 21.8 % (11.7-14.2); RDW Standard Deviation 85.3 fL (35.1-46.3); Red Blood Cell Count 2.22 M/mm3 (3.80-5.20); White Blood Cell Count 2.13 K/mm3 (4.00-11.30)
[2020-08-12 04:06] LABS: IMMATURE GRAN ABSOLUTE AUTO 0.02 K/mm3 (0.00-0.10); IMMATURE GRAN PERCENT AUTO 1 % (0-1); LYMPHOCYTES ABSOLUTE AUTO 0.33 K/mm3 (0.84-5.20); LYMPHOCYTES PERCENT AUTO 16 % (21-46); MONOCYTES ABSOLUTE AUTO 0.11 K/mm3 (0.16-1.47); MONOCYTES PERCENT AUTO 5 % (4-13); NEUTROPHILS PERCENT AUTO 75 % (41-73)
[2020-08-12 04:27] LABS: Alanine Aminotransfer (ALT/SGP 27 U/L (12-78); Albumin, Blood 2.5 g/dL (3.4-5.0); Albumin/Globulin Ratio 0.7 (0.8-1.8); Alk Phos 181 U/L (50-136); Anion Gap 5 mmol/L (6-16); Aspartate Aminotrans (AST/SGOT 36 U/L (12-37); Bilirubin, Total 0.4 mg/dL (0.1-1.0); Blood Urea Nitrogen 48 mg/dL (8-24); Bun/Creatinine Ratio 22.2 (12.0-20.0); CO2, Blood 31 mmol/L (21-32); Calcium, Blood 7.8 mg/dL (8.5-10.1); Chloride, Blood 105 mmol/L (98-108); Creatinine, Blood 2.16 mg/dL (0.40-1.00); Globulin, Blood 3.6 g/dL (2.2-4.0); Glomerular Filtration Rate 24 (60-); Glucose, Blood 113 mg/dL (70-99); Phosphorus, Blood 3.5 mg/dL (2.5-4.9); Potassium, Blood 3.5 mmol/L (3.5-5.5); Sodium, Blood 141 mmol/L (136-145); Total Protein, Blood 6.1 g/dL (6.4-8.2)
--- NOTE | 2020-08-12 06:03 | NUR ---
CXR PT GONE TO IMAGING BY WHEELCHAIR AT THIS TIME FOR 2V CXR.
--- NOTE | 2020-08-12 06:09 | NUR ---
SHIFT SUMMARY PT A&O X4. VSS. SPO2 > 92% ON RA-2L HUMIDIFIED NC THIS SHIFT. MONITOR SHOWING SB-SR, HR 50's-60's. NO EVENTS OVER NIGHT.
--- NOTE | 2020-08-12 07:59 | NUR ---
Priscilla states that she slept last night, and is feeling like her breathing is better this morning, but says that she feels better with a little bit of oxygen. She is wearing a nasal cannula with 1 l/min O2 delivery while she sits up in bed eating breakfast. Denies pain; states that a headache she had went away after she slept.
[2020-08-12 13:48] LABS: Albumin, Blood 2.5 g/dL (3.4-5.0); Albumin/Globulin Ratio 0.7 (0.8-1.8); Bilirubin, Total 0.4 mg/dL (0.1-1.0); Bun/Creatinine Ratio 21.7 (12.0-20.0); Creatinine, Blood 2.12 mg/dL (0.40-1.00); Globulin, Blood 3.7 g/dL (2.2-4.0); Potassium, Blood 3.4 mmol/L (3.5-5.5); Total Protein, Blood 6.2 g/dL (6.4-8.2)
[2020-08-12 17:07] LABS: Automated BF WBC Count 0.273 K/mm3 (0-999); Body Fluid WBC Count 273 /mm3 (0-999)
[2020-08-12 17:15] LABS: Albumin, Body Fluid 1.3 g/dL; Glucose, Body Fluid 188 mg/dL; Lactate Dehydrogenase, Body Fl 113 U/L; Protein, Body Fluid 2.6 g/dL; Triglycerides, Body Fluid 77 mg/dL; pH, Body Fluid 7.9
[2020-08-12 17:55] LABS: RBC Count, Body Fluid 345 /mm3 (0-0)
[2020-08-12 17:58] LABS: Total Cell Count, Body Fluid 100
[2020-08-12 17:59] LABS: Appearance, Body Fluid Hazy (Clear); Color, Body Fluid Yellow (None-Yellow)
[2020-08-13 00:17] LABS: Cholesterol, Body Fluid <50 mg/dL
[2020-08-13 04:46] LABS: Hematocrit 24.8 % (33.0-51.0); Hemoglobin 7.6 g/dL (11.5-16.0); Mean Corpuscular HGB 32.8 pg (26.0-34.0); Mean Corpuscular HGB Conc 30.6 g/dL (31.5-36.5); Mean Corpuscular Volume 107 fL (80-100); Mean Platelet Volume 11.8 fL (9.1-12.4); Platelet Count 139 K/mm3 (150-400); RDW Coefficient Variation 21.4 % (11.7-14.2); RDW Standard Deviation 83.5 fL (35.1-46.3); Red Blood Cell Count 2.32 M/mm3 (3.80-5.20); White Blood Cell Count 1.84 K/mm3 (4.00-11.30)
--- NOTE | 2020-08-13 05:12 | NUR ---
Shift Summary: Priscilla is alert and oriented x4. On tele - sinus rhythm with HR in the 60's. vital signs stable. States she can breath better after the thorocentesis on 08/12. 1.5L O2 via nasal cannula and with sats above 90%. minimal SOB when moving to bedside commode. Up to bedside commode this shift with the feeling of urgency, unable to void in beside commode. 2 episode of urine incontinence, attends in place. R forearm IV saline locked and flushing well. 1500 fluid restriction. Anxious to go home. Slept most of the shift waking for cares. Will continue to monitor.
[2020-08-13 05:15] LABS: Albumin, Blood 2.5 g/dL (3.4-5.0); Albumin/Globulin Ratio 0.7 (0.8-1.8); Bilirubin, Total 0.4 mg/dL (0.1-1.0); Calcium, Blood 7.9 mg/dL (8.5-10.1); Creatinine, Blood 2.24 mg/dL (0.40-1.00); Globulin, Blood 3.5 g/dL (2.2-4.0); Potassium, Blood 3.6 mmol/L (3.5-5.5)
[2020-08-13 05:21] LABS: BASOPHILS ABSOLUTE MAN 0.05 K/mm3 (0.00-0.23); BASOPHILS PERCENT MAN 3 % (0-2); EOSINOPHILS ABSOLUTE MAN 0.01 K/mm3 (0.00-0.68); EOSINOPHILS PERCENT MAN 1 % (0-6); LYMPHOCYTES ABSOLUTE MAN 0.36 K/mm3 (0.84-5.20); LYMPHOCYTES PERCENT MAN 20 % (21-46); MONOCYTES ABSOLUTE MAN 0.12 K/mm3 (0.16-1.47); MONOCYTES PERCENT MAN 7 % (4-13); NEUTROPHILS ABSOLUTE MAN 1.26 K/mm3 (1.96-9.15); SEG NEUTROPHILS PERCENT MAN 69 % (41-73); TOTAL CELLS COUNTED 100
[2020-08-13 07:09] LABS: HBSAG SCREEN Negative (Negative); HEP B CORE AB, TOT Negative (Negative); HEP C VIRUS AB 0.1 (0.0-0.9)
--- NOTE | 2020-08-13 18:57 | NUR ---
SUMMARY NO ACUTE CHANGES NOTED THROGH THE DAY. PT REMAINS ON 2 L O2 VIA NC, SPO2 >95% @ REST & >90% W/ACTIVITY, VSS, DYSPNEA NOTED WITH EXERTION, PT DENIES DIZZINESS/CP. TOLERATING PO INTAKE, VOIDING WNL, NO C/O URGENCY. CHEST XRAY COMPLETED TODAY, REPEAT ORDERED FOR THE AM PER PULMONOLOGY. PT WAS ABLE TO WORK WITH PHYSICAL THERAPY WITH NO PROBLEMS. SHE DENIES PAIN. REPORT GIVEN TO NOC RN. CALL LIGHT IN REACH.
[2020-08-14 03:55] LABS: BASOPHILS ABSOLUTE AUTO 0.02 K/mm3 (0.00-0.23); BASOPHILS PERCENT AUTO 1 % (0-2); EOSINOPHILS ABSOLUTE AUTO 0.04 K/mm3 (0.00-0.68); EOSINOPHILS PERCENT AUTO 2 % (0-6); Hemoglobin 7.8 g/dL (11.5-16.0); Mean Corpuscular HGB 33.2 pg (26.0-34.0); Mean Corpuscular HGB Conc 31.2 g/dL (31.5-36.5); Mean Corpuscular Volume 106 fL (80-100); Mean Platelet Volume 11.5 fL (9.1-12.4); Platelet Count 139 K/mm3 (150-400); RDW Coefficient Variation 21.2 % (11.7-14.2); RDW Standard Deviation 82.7 fL (35.1-46.3); Red Blood Cell Count 2.35 M/mm3 (3.80-5.20); White Blood Cell Count 1.87 K/mm3 (4.00-11.30)
[2020-08-14 04:08] LABS: IMMATURE GRAN ABSOLUTE AUTO 0.01 K/mm3 (0.00-0.10); IMMATURE GRAN PERCENT AUTO 1 % (0-1); LYMPHOCYTES ABSOLUTE AUTO 0.28 K/mm3 (0.84-5.20); LYMPHOCYTES PERCENT AUTO 15 % (21-46); MONOCYTES PERCENT AUTO 11 % (4-13); NEUTROPHILS ABSOLUTE AUTO 1.32 K/mm3 (1.96-9.15); NEUTROPHILS PERCENT AUTO 71 % (41-73)
[2020-08-14 04:13] LABS: Albumin, Blood 2.5 g/dL (3.4-5.0); Albumin/Globulin Ratio 0.7 (0.8-1.8); Bilirubin, Total 0.4 mg/dL (0.1-1.0); Bun/Creatinine Ratio 22.5 (12.0-20.0); Globulin, Blood 3.6 g/dL (2.2-4.0); Total Protein, Blood 6.1 g/dL (6.4-8.2)
--- NOTE | 2020-08-14 07:24 | NUR ---
SHIFT SUMMARY PATIENT PLEASENT AND COOPERATIVE THROUGHOUT THE NIGHT. PATIENT UP TO THE BATHROOM WITH ONE ASSIST AND WALKER SEVERAL TIMES LAST NIGHT. PATIENT REMAINED ON 2L OF OXYGEN THROUGHOUT THE NIGHT. PATIENT APPEARED TO SLEEP WELL FOR SEVERAL HOURS AT THE BEGINNING OF THE NIGHT BUT THEN ONLY APPEARED TO NAP ON AND OFF THROUGHOUT THE REST OF THE NIGHT. REPORT GIVEN TO JANE MULLINS.
--- NOTE | 2020-08-14 13:51 | NUR ---
SURGICAL PT TO SURGERY AT THIS TIME. SHE IS AWAKE,ALERT, ORIENTED X4, VSS, RESP UNLABORED. PT'S IS AT THE BEDSIDE AND HE HAS HAS FOLLOWED TO THE WAITING AREA.
--- NOTE | 2020-08-14 15:35 | NUR ---
ASSUMED CARE PT HAS RETURNED FROM SURGERY, SHE IS AWAKE, ALERT & ORIENTED X4, VSS, O2 VIA NC @ 3 L, SPO2 98%, LUNGS SOUNDS CLEAR W/FEW CRACKLES NOTED ON RIGHT LOWER LOBE. SURGICAL DRSG IS C/D/I, DRAIN TUBE IS COILED UNDER CLEAR TEGADERM, CAP IS SECURE. PT DENIES ANY PAIN AT THIS TIME. PT'S IS AT THE BEDSIDE. CALL LIGHT IN REACH, BED IN LOW POSITION, WCTM, RECOVERY VITALS IN PROGRESS.
--- NOTE | 2020-08-14 17:33 | NUR ---
SHIFT SUMMARY PT WENT TO SURGERY TODAY FOR PLACEMENT OF A RIGHT SIDED PLUERX CATH. HEALTH SPECIALIST REPORTED 1,000 ML OF FLUID REMOVED, SAMPLE WAS SENT TO LAB FOR CYTOLOGY. PT IS TOLERATING CATHETER WITH NO PROBLEMS, SHE REMAINS ON 2 L O2 VIA NC, SPO2 >94%, VSS, NO C/O PAIN, DRSG C/D/I, TOLERATING PO INTAKE, VOIDING WNL. SHE IS CURRENTLY SITTING UP IN A CHAIR AT THE BEDSIDE EATING DINNER & VISITING WITH HER . CALL ROLAND IN [facility] & REPORT TO NOC RN.
[2020-08-15 05:22] LABS: Hemoglobin 7.6 g/dL (11.5-16.0); Mean Corpuscular HGB 33.8 pg (26.0-34.0); Mean Corpuscular HGB Conc 31.7 g/dL (31.5-36.5); Mean Corpuscular Volume 107 fL (80-100); Mean Platelet Volume 11.4 fL (9.1-12.4); Platelet Count 113 K/mm3 (150-400); RDW Coefficient Variation 21.2 % (11.7-14.2); RDW Standard Deviation 81.8 fL (35.1-46.3); Red Blood Cell Count 2.25 M/mm3 (3.80-5.20); White Blood Cell Count 2.04 K/mm3 (4.00-11.30)
[2020-08-15 05:38] LABS: Albumin, Blood 2.3 g/dL (3.4-5.0); Albumin/Globulin Ratio 0.7 (0.8-1.8); Bilirubin, Total 0.5 mg/dL (0.1-1.0); Calcium, Blood 7.9 mg/dL (8.5-10.1); Creatinine, Blood 2.05 mg/dL (0.40-1.00); Globulin, Blood 3.4 g/dL (2.2-4.0); Potassium, Blood 4.1 mmol/L (3.5-5.5); Total Protein, Blood 5.7 g/dL (6.4-8.2)
[2020-08-15 06:08] LABS: BAND PERCENT MAN 1 % (0-8); BASOPHILS ABSOLUTE MAN 0.08 K/mm3 (0.00-0.23); BASOPHILS PERCENT MAN 4 % (0-2); EOSINOPHILS ABSOLUTE MAN 0.08 K/mm3 (0.00-0.68); EOSINOPHILS PERCENT MAN 4 % (0-6); LYMPHOCYTES ABSOLUTE MAN 0.22 K/mm3 (0.84-5.20); LYMPHOCYTES PERCENT MAN 11 % (21-46); MONOCYTES ABSOLUTE MAN 0.14 K/mm3 (0.16-1.47); MONOCYTES PERCENT MAN 7 % (4-13); SEG NEUTROPHILS PERCENT MAN 73 % (41-73); TOTAL CELLS COUNTED 100
--- NOTE | 2020-08-15 06:49 | NUR ---
SHIFT SUMMARY PATIENT PLEASENT AND COOPERATIVE THROUGHOUT THE NIGHT. PATIENT UP TO THE BATHROOM WITH FWW SEVERAL TIMES. PATIENT APPEARED TO NAP WELL ON AND OFF THROUGHOUT THE NIGHT. PATIENT MEDICATED FOR PAIN PER EMAR. PATIENT REPORTED THAT HER BREATHING WAS FEELING "GOOD" THROUGHOUT THE SHIFT. PLEURX DRAIN IN PLACE, NO BRUSING OR BLEEDING NOTED AT SITE.
[2020-08-15 09:07] LABS: HBSAG SCREEN Negative (Negative); HEP B CORE AB, TOT Negative (Negative); HEP C VIRUS AB 0.1 (0.0-0.9)
--- NOTE | 2020-08-15 12:21 | NUR ---
Spoke with Dr Ornelas and discussed case. Pt has PleurX drain placed due to recurrent plural effusion. Pt may benefit from advanced care planning. Pt resting in bed upon arrival. Pt denies pain at this time. Engaged in therapeutic listening and answered questions. Pt reports goal of getting home with ability to care for her self more efficiently. Pt agreeable for this RN to F/U when ex spouse arrives for education regarding PleurX drain. Spoke with Bedside RN and discussed case. Palliative Care will F/U when ex spouse (caregiver) arrives.
--- NOTE | 2020-08-15 18:46 | NUR ---
Spoke with Dr Man prior to visiting with Pt. Dr Man would like to wait and drain Pt tomorrow. Pt resting in bed upon arrival. Pt's caregiver Louie at bedside. Provided video of PleurX drain for Louie to watch. Discussed plan for further education tomorrow with instruction and demonstration before Pt is D/C home. Engaged in gentle education regarding disease process including trajectory of disease. Discussed the importance of developing multiple plans with PCP as disease process takes its coarse, inlcuding the option for hospice. Pt and caregiver express appreciation of visit and are agreeable with further PleurX drain education tomorrow. Palliative Care will F/U tomorrow prior to D/C for further education and draining of PleurX.
--- NOTE | 2020-08-15 19:19 | NUR ---
SUMMARY PT HAS DONE WELL TODAY. SHE IS CURRENTLY ON ROOM AIR, SPO2 REMAINS >95%, PT DENIES SOB, RESP UNLABORED, VSS. PLEURX CATH/DRSG INTACT, SMALL AMOUNT OF SS DRNG NOTED ON DRSG, DRNG TRACE & DATED. TYLENOL GIVEN FOR PAIN. PALLIATIVE CARE WAS IN TO SPEAK WITH THE PT & HER TODAY REGARDING CATH CARE, HE WILL F/U IN THE AM. PT WWORKED WITH PHYSIACL THERAPY WITH NO PROBLEMS, TOLERATING PO INTAKE, VOIDING WNL, NO OTHER ACUTE CHANGES NOTED. REPORT GIVEN TO RAFFAELE MULLINS.
[2020-08-16 04:14] LABS: BASOPHILS ABSOLUTE AUTO 0.03 K/mm3 (0.00-0.23); BASOPHILS PERCENT AUTO 2 % (0-2); EOSINOPHILS ABSOLUTE AUTO 0.04 K/mm3 (0.00-0.68); EOSINOPHILS PERCENT AUTO 2 % (0-6); Hematocrit 24.2 % (33.0-51.0); Hemoglobin 7.8 g/dL (11.5-16.0); Mean Corpuscular HGB 34.1 pg (26.0-34.0); Mean Corpuscular HGB Conc 32.2 g/dL (31.5-36.5); Mean Corpuscular Volume 106 fL (80-100); Mean Platelet Volume 11.4 fL (9.1-12.4); Platelet Count 103 K/mm3 (150-400); RDW Coefficient Variation 21.2 % (11.7-14.2); RDW Standard Deviation 80.9 fL (35.1-46.3); Red Blood Cell Count 2.29 M/mm3 (3.80-5.20); White Blood Cell Count 1.96 K/mm3 (4.00-11.30)
[2020-08-16 04:18] LABS: IMMATURE GRAN PERCENT AUTO 0 % (0-1); LYMPHOCYTES PERCENT AUTO 20 % (21-46); MONOCYTES ABSOLUTE AUTO 0.18 K/mm3 (0.16-1.47); MONOCYTES PERCENT AUTO 9 % (4-13); NEUTROPHILS ABSOLUTE AUTO 1.31 K/mm3 (1.96-9.15); NEUTROPHILS PERCENT AUTO 67 % (41-73)
[2020-08-16 04:37] LABS: Albumin, Blood 2.4 g/dL (3.4-5.0); Albumin/Globulin Ratio 0.7 (0.8-1.8); Bilirubin, Total 0.6 mg/dL (0.1-1.0); Bun/Creatinine Ratio 18.1 (12.0-20.0); Calcium, Blood 7.9 mg/dL (8.5-10.1); Creatinine, Blood 2.15 mg/dL (0.40-1.00); Globulin, Blood 3.5 g/dL (2.2-4.0); Total Protein, Blood 5.9 g/dL (6.4-8.2)
--- NOTE | 2020-08-16 06:16 | NUR ---
SHIFT SUMMARY PT HAD A QUIET UNEVENTFUL NIGHT, SHE WAS ALERT AND ORIENTED AND COOPERATIVE WITH CARE. PLUREX CATH SITE WAS CLEAN, DRY, AND INTACT, DRESSING HAD LITTLE CHANGE IN DRAINAGE SATURATION. PT STATED HAVING MILD PAIN AT SITE, MINIMAL DISCOMFORT T/O THE NIGHT. PT WAS ON ROOM AIR T/O SHIFT WITH O2 SATS >90%. BP 140-150'S SYSTOLIC. HR 60-70'S. HGB HAD LITTLE CHANGE ON AM LABS. PT IS OTHERWISE DOING WELL AND IS IN STABLE CONDTION.
[2020-08-16] MEDS ORDERED: FURO40 PO (07:35)
[2020-08-16] MEDS ORDERED: SPIR50 PO (07:35)
--- NOTE | 2020-08-16 09:40 | NUR ---
AM NOTE PT ALERT AND ORIENTED x4; PT REPORT ANXIOUSNESS REGARDING GO HOME TODAY; THERAPUTIC LISTENING USED. EDUCATED PT ON HOME HEALTH AND PROPOSE. PT REPORTS MILD PAIN TO RIGHT RIB/SIDE, DENIES NEED FOR INTERVENTION AT THIS TIME. PT DENIES CHEST PAIN, SOB, AND DIZZINESS. PT NAUSEA, STATES IT MAY BE RELATED TO NERVES REGARDING GOING HOME; DENIES NEED FOR INTERVENTION AT THIS TIME. DRESSING TO RIGHT SIDE, 75% SATURATED, PER PALLEATIVE CARE RN, PLANS TO CHANGE DRESSING THIS AM WITH CAREGIVER WHILE TRAINING. VSS. NO OTHER ACUTE CHANGES NOTED. WILL CONTINTUE TO MONITOR.
--- NOTE | 2020-08-16 11:06 | NUR ---
Pt's caregiver Louie has arrived and is at bedside. Pt resting in bed and denies pain at this time. Pt denies dyspnea at this time. Pt and caregiver agreeable for hands on demonstration education of PleurX drain. Provided verbal step by step instructions. Louie appears to understand but may benefit from continued education. 1000 mls drained. Stopped drain at 1000 mls. Pt did verbalize some discomfort during the last 100 mls. Slowed drain for comfort. Spoke with Dr Man and relayed information. Dr Man reports every other draining or possibly every 3rd day would be sufficient. Pt can drain sooner if discomfort or dyspnea occurs. Spoke with Bedside HARPREET Merchant and discussed case. Palliative Care will remain available.
[2020-08-16] MEDS ORDERED: AMLO5 PO (12:44)
[2020-08-16] MEDS ORDERED: ATOR40TA PO (12:45)
[2020-08-16] MEDS ORDERED: Imdur-ER60 MG PO (12:48)
--- NOTE | 2020-08-16 14:39 | NUR ---
DISCHARGE SUMMARY PLEUREX DRAIN IN PLACE, PALLEATIVE CARE EDUCATED CAREGIVER ON HOW TO DRAIN AND CHANGES DRESSING. NO OTHER ACUTE CHAGNES NOTED. PT AND CAREGIVER EDUCATED ON DISCHARGE INSTRUCTIONS, FOLLOW UP APPOINTMENT AND MEDICATIONS. PRESCRIPTIONS SENT [facility] IN [place], PER PT REQUEST. PT LEFT ROOM VIA WHEELCHAIR AT 1430. PLANS FOR FOLLOW UP WITH HOME HEALTH IN THE NEXT DAY OR SO.
== END 2020-08-16 14:30 | disposition home health service (06) | DRG 280 ==
LOC: ER 09:23 → PCU 12:08 → ERHOLD 12:08 → PCU 16:49
PROVIDERS: Emergency Medicine; Family Medicine; Internal Medicine; ADMIT Internal Medicine
PROC: 0W993ZX Drainage of Right Pleural Cavity, Percutaneous Approach, Diagnostic (ICD-10-PCS; principal; 2020-08-09)
PROC: 0W993ZZ Drainage of Right Pleural Cavity, Percutaneous Approach (ICD-10-PCS; 2020-08-10)
PROC: 0W993ZZ Drainage of Right Pleural Cavity, Percutaneous Approach (ICD-10-PCS; 2020-08-11)
PROC: 0W993ZZ Drainage of Right Pleural Cavity, Percutaneous Approach (ICD-10-PCS; 2020-08-12)
PROC: 0W9930Z Drainage of Right Pleural Cavity with Drainage Device, Percutaneous Approach (ICD-10-PCS; 2020-08-14)
DX: I13.0 Hypertensive heart and chronic kidney disease with heart failure and stage 1 through stage 4 chronic kidney disease, or unspecified chronic kidney disease (principal); I50.33 Acute on chronic diastolic (congestive) heart failure; I21.A1 Myocardial infarction type 2; D61.810 Antineoplastic chemotherapy induced pancytopenia; J96.01 Acute respiratory failure with hypoxia; J90 Pleural effusion, not elsewhere classified; C79.51 Secondary malignant neoplasm of bone; Z68.42 Body mass index [BMI] 45.0-49.9, adult; N17.9 Acute kidney failure, unspecified; Z51.5 Encounter for palliative care; K21.9 Gastro-esophageal reflux disease without esophagitis; I27.20 Pulmonary hypertension, unspecified; N18.30 Chronic kidney disease, stage 3 unspecified; E11.22 Type 2 diabetes mellitus with diabetic chronic kidney disease; E78.5 Hyperlipidemia, unspecified; E89.0 Postprocedural hypothyroidism; E66.01 Morbid (severe) obesity due to excess calories; D64.81 Anemia due to antineoplastic chemotherapy; D63.1 Anemia in chronic kidney disease; F41.9 Anxiety disorder, unspecified; J44.9 Chronic obstructive pulmonary disease, unspecified; F32.9 Major depressive disorder, single episode, unspecified; K74.60 Unspecified cirrhosis of liver; Z79.82 Long term (current) use of aspirin; Z79.4 Long term (current) use of insulin; Z85.3 Personal history of malignant neoplasm of breast; Z90.13 Acquired absence of bilateral breasts and nipples
CPT/HCPCS: 0241U; 32555; 36415; 36430; 71045; 71046; 71250; 71260; 74177; 80048; 80053; 80069; 81001; 82042; 82465; 82607; 82728; 82746; 82945; 82947; 83540; 83550; 83615; 83735; 83880; 83986; 84100; 84145; 84155; 84157; 84478; 84484; 85014; 85018; 85025; 85610; 85730; 86317; 86704; 86708; 86803; 86850; 86900; 86901; 86923; 87015; 87070; 87102; 87116; 87205; 87206; 87252; 87254; 87340; 88108; 88305; 88342; 89051; 93005; 93010; 93308; 93321; 94640; 94660; 94762; 96374-59; 96375-59; 97110; 97116; 97162; 97166; 97530; 97535; 99285-25; A9270; C1729; J0360; J0690; J1650; J1940; J2060; J2250; J2704; J3010; J3475; J3480; J7030; J7050; P9016; Q9967

== ENCOUNTER 2020-08-24 20:36 | Inpatient (IN) | payer MEDICARE, OTHER ==
[~2020-08-24] VITALS: Ht 154.9 cm; Wt 99.8 kg
[~2020-08-24 20:36] MED LIST changes: +AMLO5 PO; +ATOR40TA PO; +IBRANCE125 M1 PO; +Imdur-ER60 MG PO; +METO50ER PO; +SPIR50 PO; +[UNRECOGNIZED DRUG - REMARK]
[2020-08-24 21:25] LABS: BASOPHILS ABSOLUTE AUTO 0.05 K/mm3 (0.00-0.23); BASOPHILS PERCENT AUTO 2 % (0-2); EOSINOPHILS ABSOLUTE AUTO 0.03 K/mm3 (0.00-0.68); EOSINOPHILS PERCENT AUTO 1 % (0-6); Hematocrit 30.5 % (33.0-51.0); Hemoglobin 9.8 g/dL (11.5-16.0); IMMATURE GRAN ABSOLUTE AUTO 0.02 K/mm3 (0.00-0.10); IMMATURE GRAN PERCENT AUTO 1 % (0-1); LYMPHOCYTES ABSOLUTE AUTO 0.63 K/mm3 (0.84-5.20); LYMPHOCYTES PERCENT AUTO 21 % (21-46); MONOCYTES ABSOLUTE AUTO 0.13 K/mm3 (0.16-1.47); MONOCYTES PERCENT AUTO 4 % (4-13); Mean Corpuscular HGB 34.4 pg (26.0-34.0); Mean Corpuscular HGB Conc 32.1 g/dL (31.5-36.5); Mean Corpuscular Volume 107 fL (80-100); NEUTROPHILS ABSOLUTE AUTO 2.12 K/mm3 (1.96-9.15); NEUTROPHILS PERCENT AUTO 71 % (41-73); Platelet Count 98 K/mm3 (150-400); RDW Coefficient Variation 22.7 % (11.7-14.2); RDW Standard Deviation 91.8 fL (35.1-46.3); Red Blood Cell Count 2.85 M/mm3 (3.80-5.20); White Blood Cell Count 2.98 K/mm3 (4.00-11.30)
[2020-08-24 21:26] LABS: Mean Platelet Volume 13.1 fL (9.1-12.4)
[2020-08-24 21:42] LABS: Free Thyroxine 1.25 ng/dL (0.70-1.60); Magnesium, Blood 1.8 mg/dL (1.6-2.4); Thyroid Stimulating Hormone 10.2 uIU/mL (0.360-4.800); Troponin I 0.021 ng/mL (0.000-0.040)
[2020-08-24 21:51] LABS: Albumin, Blood 2.5 g/dL (3.4-5.0); Albumin/Globulin Ratio 0.6 (0.8-1.8); Bilirubin, Total 0.5 mg/dL (0.1-1.0); Bun/Creatinine Ratio 13.8 (12.0-20.0); Calcium, Blood 7.8 mg/dL (8.5-10.1); Creatinine, Blood 3.12 mg/dL (0.40-1.00); Globulin, Blood 4.2 g/dL (2.2-4.0); Total Protein, Blood 6.7 g/dL (6.4-8.2)
[2020-08-24 22:11] LABS: Potassium, Blood 6.1 mmol/L (3.5-5.5)
[2020-08-25 05:14] LABS: Hematocrit 29.4 % (33.0-51.0); Hemoglobin 9.4 g/dL (11.5-16.0); Mean Corpuscular HGB 33.9 pg (26.0-34.0); Mean Corpuscular Volume 106 fL (80-100); Platelet Count 56 K/mm3 (150-400); RDW Coefficient Variation 22.5 % (11.7-14.2); Red Blood Cell Count 2.77 M/mm3 (3.80-5.20); White Blood Cell Count 1.76 K/mm3 (4.00-11.30)
[2020-08-25 05:19] LABS: Mean Platelet Volume 12.7 fL (9.1-12.4)
[2020-08-25 05:29] LABS: Bun/Creatinine Ratio 14.5 (12.0-20.0); Calcium, Blood 7.9 mg/dL (8.5-10.1); Creatinine, Blood 3.18 mg/dL (0.40-1.00); Potassium, Blood 4.7 mmol/L (3.5-5.5)
[2020-08-25 05:40] LABS: BASOPHILS ABSOLUTE MAN 0.03 K/mm3 (0.00-0.23); BASOPHILS PERCENT MAN 2 % (0-2); EOSINOPHILS ABSOLUTE MAN 0.05 K/mm3 (0.00-0.68); EOSINOPHILS PERCENT MAN 3 % (0-6); LYMPHOCYTES ABSOLUTE MAN 0.38 K/mm3 (0.84-5.20); LYMPHOCYTES PERCENT MAN 22 % (21-46); MONOCYTES ABSOLUTE MAN 0.05 K/mm3 (0.16-1.47); MONOCYTES PERCENT MAN 3 % (4-13); NEUTROPHILS ABSOLUTE MAN 1.23 K/mm3 (1.96-9.15); SEG NEUTROPHILS PERCENT MAN 70 % (41-73); TOTAL CELLS COUNTED 100
[2020-08-26 03:53] LABS: BASOPHILS ABSOLUTE AUTO 0.02 K/mm3 (0.00-0.23); BASOPHILS PERCENT AUTO 1 % (0-2); EOSINOPHILS ABSOLUTE AUTO 0.02 K/mm3 (0.00-0.68); EOSINOPHILS PERCENT AUTO 1 % (0-6); Hematocrit 27.2 % (33.0-51.0); Hemoglobin 8.8 g/dL (11.5-16.0); Mean Corpuscular HGB 34.6 pg (26.0-34.0); Mean Corpuscular HGB Conc 32.4 g/dL (31.5-36.5); Mean Corpuscular Volume 107 fL (80-100); Mean Platelet Volume 12.9 fL (9.1-12.4); Platelet Count 52 K/mm3 (150-400); RDW Coefficient Variation 22.5 % (11.7-14.2); RDW Standard Deviation 89.9 fL (35.1-46.3); Red Blood Cell Count 2.54 M/mm3 (3.80-5.20); White Blood Cell Count 1.55 K/mm3 (4.00-11.30)
[2020-08-26 04:00] LABS: IMMATURE GRAN ABSOLUTE AUTO 0.01 K/mm3 (0.00-0.10); IMMATURE GRAN PERCENT AUTO 1 % (0-1); LYMPHOCYTES PERCENT AUTO 26 % (21-46); MONOCYTES ABSOLUTE AUTO 0.06 K/mm3 (0.16-1.47); MONOCYTES PERCENT AUTO 4 % (4-13); NEUTROPHILS ABSOLUTE AUTO 1.04 K/mm3 (1.96-9.15); NEUTROPHILS PERCENT AUTO 67 % (41-73)
[2020-08-26 04:06] LABS: Albumin, Blood 2.4 g/dL (3.4-5.0); Anion Gap 7 mmol/L (6-16); Blood Urea Nitrogen 42 mg/dL (8-24); Bun/Creatinine Ratio 14.5 (12.0-20.0); CO2, Blood 23 mmol/L (21-32); Calcium, Blood 7.3 mg/dL (8.5-10.1); Chloride, Blood 107 mmol/L (98-108); Creatinine, Blood 2.89 mg/dL (0.40-1.00); Glomerular Filtration Rate 17 (60-); Glucose, Blood 165 mg/dL (70-99); Phosphorus, Blood 2.8 mg/dL (2.5-4.9); Potassium, Blood 4.9 mmol/L (3.5-5.5); Sodium, Blood 137 mmol/L (136-145)
--- NOTE | 2020-08-26 05:00 | NUR ---
SHIFT SUMMARY PT RESTED WELL THROUGH NIGHT. ALERT AND ORIENTED - ABLE TO MAKE NEEDS KNOWN. SATS >90% ON ROOM AIR. TELE NSR. NO C/O CHEST PAIN. VOIDING TO BATHROOM, NO BM. NO C/O PAIN. VSS. CALL LIGHT WITHIN REACH, BED IN LOWEST POSITION. WILL CONTINUE TO MONITOR.
--- NOTE | 2020-08-26 14:00 | NUR ---
PT IS A 70YO/F WHO WAS ADMITTED FOR ACUTE ON CHRONIC KIDNEY INJURY. PT IS AOX4; CALLS APPROPRIATELY AND STANDBY ASSIST TO THE BATHROOM/BSC. 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 PT ALSO HAS PMH OF DM2, RECURRENT RIGHT PLEURAL EFFUSION, CKD3, CIRRHOSIS, CHF AND HYPOTHYROIDISM. PT HAS PLEURX CATH PLACED ON 08/14- NEEDS DRAIN EVERY 3 DAYS. THEY WERE ABLE TO DRAIN IT YESTERDAY MORNING. I WAS TOLD BY THE RN THAT THEY WERE ABLE TO TOOK 900ML OUT; THEREFORE THIS PT MIGHT NEED TO BE DRAIN TOMORROW. PT DENIES ANY PAIN UPON ARRIVAL. PT DENIES CP OR SOB. PT WILL STILL NEED UA. VSS. EX- WHO IS THE CAREGIVER OF THIS PT IS AT BEDSIDE AT THIS TIME. BED IS IN THE LOWEST POSITION AND CALL LIGHT WITHIN REACH.
[2020-08-26 17:14] LABS: Source, Urine Voided
[2020-08-26 17:20] LABS: Appearance, Urine Clear (Clear); Bilirubin, Urine Neg (Neg); Blood, Urine Neg (Neg); Color, Urine Yellow (P-Yellow); Glucose Qualitative, Urine Neg (Neg); Ketones, Urine Neg (Neg); Leukocyte Esterase, Urine 3+ (Neg); Nitrite, Urine Neg (Neg); Protein, Urine Neg (Neg); Specific Gravity, Urine 1.015 (1.003-1.022); Urobilinogen, Urine NORM (Normal)
[2020-08-26 17:29] LABS: Other Crystals Few /hpf
[2020-08-26 17:32] LABS: Bacteria Few /hpf; Squamous Epithelial Cells Few /hpf (Few)
--- NOTE | 2020-08-27 00:27 | NUR ---
08/26/201939 PT RESTING COMFORTABLY IN BED; CHEERFUL.
--- NOTE | 2020-08-27 04:51 | NUR ---
SHIFT SUMMARY: 57 Y/O OBESE FEMALE RESTED COMFORTABLY ALL SHIFT; PTS RIGHT LOWER CHEST PLEURAL EFFUSION DRAIN DRESSING DRY AND INTACT; DENIES PAIN OR NAUSEA OR DYSPNEA; UP TO BATHROOM VIA WALKER X 1 STANDBY ASSIST WITH GAIT SLOW AND STEADY; HAPPY AND COOPERATIVE; EAGER TO RETURN HOME TODAY; BED ALARM APPLIED FOR SAFETY, BED LOW POSITION WITH CALL LIGHT AT SIDE.
[2020-08-27 09:49] LABS: Bun/Creatinine Ratio 14.7 (12.0-20.0); Calcium, Blood 7.5 mg/dL (8.5-10.1); Creatinine, Blood 2.78 mg/dL (0.40-1.00); Potassium, Blood 4.6 mmol/L (3.5-5.5)
[2020-08-27] MEDS ORDERED: SENN187 PO (13:58)
--- NOTE | 2020-08-27 15:00 | NUR ---
PATIENT DISCHARGE: PATIENT DISCHARGED TO HOME THIS SHIFT. MEDICATION RECONCILIATION COMPLETED; MED LIST FAXED TO [facility]. DISCHARGE EDUCATION COMPLETED WITH PATIENT AND S/O. PATIENT TRANSPORTED TO EXIT BY [facility] STAFF WITH WHEELCHAIR AT 1449. PATIENT DEPARTED [facility] VIA PRIVATE AUTO.
== END 2020-08-27 14:49 | disposition home or self-care (01) | DRG 682 ==
LOC: ER 20:36 → MEDS 22:59 → PCU 22:59 → ERHOLD 22:59 → PCU 08-25 00:51 → MEDS 08-26 13:17
PROVIDERS: Emergency Medicine; Family Medicine; Internal Medicine; Student in an Organized Health Care Education/Training Program; ADMIT Internal Medicine
DX: N17.9 Acute kidney failure, unspecified (principal); D61.810 Antineoplastic chemotherapy induced pancytopenia; I13.0 Hypertensive heart and chronic kidney disease with heart failure and stage 1 through stage 4 chronic kidney disease, or unspecified chronic kidney disease; I50.32 Chronic diastolic (congestive) heart failure; J90 Pleural effusion, not elsewhere classified; D61.818 Other pancytopenia; E11.22 Type 2 diabetes mellitus with diabetic chronic kidney disease; N18.30 Chronic kidney disease, stage 3 unspecified; Z79.4 Long term (current) use of insulin; E86.0 Dehydration; I95.9 Hypotension, unspecified; E87.5 Hyperkalemia; E03.9 Hypothyroidism, unspecified; E11.649 Type 2 diabetes mellitus with hypoglycemia without coma
CPT/HCPCS: 36415; 71045; 71250; 74176; 80048; 80053; 80069; 81001; 82947; 83735; 84439; 84443; 84484; 85025; 87086; 93005; 93010; 96374; 96375; 97116; 97162; 97165; 97530; 97530-CQ; 97535; 99285-25; A9270; J1644; J1815; J2405; J7030

== ENCOUNTER → 2020-09-01 | Outpatient (CLI) | payer MEDICARE, OTHER ==
[~2020-09-01] MED LIST changes: +ALPR.25; +FELODIPINE ER10 M1 PO; +FOLI1 PO; +FURO20; +LEVEMIR FL100 UNIT/2; +NOVOLOG FL100 UNIT/3; +SENN187 PO; +[UNRECOGNIZED DRUG - OTHER]
[2020-09-01 17:28] LABS: Bun/Creatinine Ratio 17.4 (12.0-20.0); Calcium, Blood 8.4 mg/dL (8.5-10.1); Creatinine, Blood 2.07 mg/dL (0.40-1.00); Potassium, Blood 4.7 mmol/L (3.5-5.5)
== END | disposition home or self-care (01) ==
LOC: LAB 11:50 → LAB SHORT 11:50
PROVIDERS: Internal Medicine
DX: N18.30 Chronic kidney disease, stage 3 unspecified (principal); K76.7 Hepatorenal syndrome
CPT/HCPCS: 80048

== ENCOUNTER → 2020-09-15 | Outpatient (CLI) | payer MEDICARE, OTHER ==
[2020-09-16 09:49] LABS: Source, Urine Clean Catch
[2020-09-16 10:07] LABS: Appearance, Urine Clear (Clear); Bilirubin, Urine Neg (Neg); Blood, Urine Neg (Neg); Color, Urine Yellow (P-Yellow); Glucose Qualitative, Urine Neg (Neg); Ketones, Urine Neg (Neg); Leukocyte Esterase, Urine 1+ (Neg); Nitrite, Urine Neg (Neg); Protein, Urine 1+ (Neg); Urobilinogen, Urine NORM (Normal)
[2020-09-16 10:23] LABS: Calcium Oxalate Crystals Few /hpf; Red Blood Cells, Urine 0-2 /hpf (0-2)
[2020-09-16 10:24] LABS: Bacteria Rare /hpf; Squamous Epithelial Cells Rare /hpf (Few)
[2020-09-16 10:25] LABS: Hyaline Casts 0-2 /lpf (0-2)
== END | disposition home or self-care (01) ==
LOC: LAB 21:00 → LAB SHORT 21:00
PROVIDERS: Internal Medicine
DX: R35.0 Frequency of micturition (principal)
CPT/HCPCS: 81001; 87086

== ENCOUNTER → 2020-10-28 | Outpatient (CLI) | payer MEDICARE, OTHER ==
[2020-10-28 17:07] LABS: Appearance, Urine Clear (Clear); Bilirubin, Urine Neg (Neg); Blood, Urine 1+ (Neg); Color, Urine Yellow (P-Yellow); Glucose Qualitative, Urine Neg (Neg); Ketones, Urine Neg (Neg); Leukocyte Esterase, Urine 1+ (Neg); Nitrite, Urine Neg (Neg); Protein, Urine Neg (Neg); Specific Gravity, Urine 1.015 (1.003-1.022); Urobilinogen, Urine NORM (Normal)
[2020-10-28 17:37] LABS: Red Blood Cells, Urine 0-2 /hpf (0-2); Squamous Epithelial Cells Few /hpf (Few)
[2020-10-28 17:38] LABS: Bacteria Mod /hpf
[2020-10-28 17:52] LABS: Creatinine, Urine Random 45.7 mg/dL (27.00-270.00); Protein, Urine Random 10.8 mg/dL (0.0-11.9); Protein/Creat Ratio, Ur Random 0.2
== END | disposition home or self-care (01) ==
LOC: LAB SHORT 08:00 → LAB UCHC 08:00
PROVIDERS: Internal Medicine
DX: N18.32 Chronic kidney disease, stage 3b (principal)
CPT/HCPCS: 81001; 82570; 84156

== ENCOUNTER 2021-02-08 00:14 | Day surgery (SDC) | payer MEDICARE, OTHER ==
[~2021-02-08 00:14] MED LIST changes: -ALPR.25; -FELODIPINE ER10 M1 PO; -FOLI1 PO; -FURO20; -LEVEMIR FL100 UNIT/2; -NOVOLOG FL100 UNIT/3; -[UNRECOGNIZED DRUG - OTHER]
[2021-02-08] MEDS ORDERED: LOVA40 PO (14:52)
[2021-02-08] MEDS ORDERED: ALPR.25 (14:54)
[2021-02-08] MEDS ORDERED: FELODIPINE ER10 M1 PO (14:56)
[2021-02-08] MEDS ORDERED: METO50ER PO (14:57)
[2021-02-08] MEDS ORDERED: FOLI1 PO (14:58)
[2021-02-08] MEDS ORDERED: [UNRECOGNIZED DRUG - OTHER] (14:59)
[2021-02-08] MEDS ORDERED: FURO20 (15:00)
[2021-02-08] MEDS ORDERED: NOVOLOG FL100 UNIT/3 (15:14)
[2021-02-08] MEDS ORDERED: LEVEMIR FL100 UNIT/2 (15:14)
== END 2021-02-08 15:55 | disposition home or self-care (01) ==
LOC: ATC 00:14
DX: D64.9 Anemia, unspecified (principal); C50.919 Malignant neoplasm of unspecified site of unspecified female breast
CPT/HCPCS: 36415; 36430; 86850; 86900; 86901; 86923; J7050; P9016

== ENCOUNTER 2021-03-31 09:43 | Day surgery (SDC) | payer MEDICARE, OTHER ==
[2021-03-30 13:21] LABS: BASOPHILS ABSOLUTE AUTO 0.02 K/mm3 (0.00-0.23); BASOPHILS PERCENT AUTO 1 % (0-2); EOSINOPHILS ABSOLUTE AUTO 0.07 K/mm3 (0.00-0.68); EOSINOPHILS PERCENT AUTO 2 % (0-6); Hematocrit 18.3 % (33.0-51.0); IMMATURE GRAN ABSOLUTE AUTO 0.01 K/mm3 (0.00-0.10); IMMATURE GRAN PERCENT AUTO 0 % (0-1); LYMPHOCYTES ABSOLUTE AUTO 0.46 K/mm3 (0.84-5.20); LYMPHOCYTES PERCENT AUTO 15 % (21-46); MONOCYTES ABSOLUTE AUTO 0.41 K/mm3 (0.16-1.47); MONOCYTES PERCENT AUTO 13 % (4-13); Mean Corpuscular HGB 37.6 pg (26.0-34.0); Mean Corpuscular HGB Conc 32.2 g/dL (31.5-36.5); Mean Corpuscular Volume 117 fL (80-100); NEUTROPHILS ABSOLUTE AUTO 2.11 K/mm3 (1.96-9.15); NEUTROPHILS PERCENT AUTO 69 % (41-73); NRBC ABSOLUTE 0.03 K/mm3 (0.00-0.02); Platelet Count 107 K/mm3 (150-400); RDW Coefficient Variation 19.9 % (11.7-14.2); RDW Standard Deviation 84.9 fL (35.1-46.3); Red Blood Cell Count 1.57 M/mm3 (3.80-5.20); White Blood Cell Count 3.08 K/mm3 (4.00-11.30)
[2021-03-30 13:26] LABS: Hematocrit 18.1 % (33.0-51.0)
[2021-03-30 13:33] LABS: Hemoglobin 5.9 g/dL (11.5-16.0)
[2021-03-30 13:34] LABS: Hemoglobin 5.9 g/dL (11.5-16.0)
[2021-03-30 13:38] LABS: Albumin, Blood 2.8 g/dL (3.4-5.0); Albumin/Globulin Ratio 0.6 (0.8-1.8); Bilirubin, Total 0.5 mg/dL (0.1-1.0); Bun/Creatinine Ratio 20.3 (12.0-20.0); Calcium, Blood 8.6 mg/dL (8.5-10.1); Creatinine, Blood 1.87 mg/dL (0.40-1.00); Globulin, Blood 4.6 g/dL (2.2-4.0); Potassium, Blood 3.6 mmol/L (3.5-5.5); Total Protein, Blood 7.4 g/dL (6.4-8.2)
[2021-03-30 13:42] LABS: Albumin, Blood 2.8 g/dL (3.4-5.0); Anion Gap 8 mmol/L (6-16); Blood Urea Nitrogen 38 mg/dL (8-24); Bun/Creatinine Ratio 20.8 (12.0-20.0); CO2, Blood 26 mmol/L (21-32); Chloride, Blood 104 mmol/L (98-108); Creatinine, Blood 1.83 mg/dL (0.40-1.00); Glomerular Filtration Rate 27 (60-); Glucose, Blood 105 mg/dL (70-99); Phosphorus, Blood 3.5 mg/dL (2.5-4.9); Potassium, Blood 3.6 mmol/L (3.5-5.5); Sodium, Blood 138 mmol/L (136-145)
[~2021-03-31 09:43] MED LIST changes: +ALPR.25; +FELODIPINE ER10 M1 PO; +FOLI1 PO; +FURO20; +LEVEMIR FL100 UNIT/2; +NOVOLOG FL100 UNIT/3; +[UNRECOGNIZED DRUG - OTHER]
== END 2021-03-31 17:53 | disposition home or self-care (01) ==
LOC: ATC 09:43
PROVIDERS: Internal Medicine; Internal Medicine Hematology & Oncology
DX: C50.919 Malignant neoplasm of unspecified site of unspecified female breast (principal); C79.51 Secondary malignant neoplasm of bone; D50.9 Iron deficiency anemia, unspecified; J44.9 Chronic obstructive pulmonary disease, unspecified; I13.0 Hypertensive heart and chronic kidney disease with heart failure and stage 1 through stage 4 chronic kidney disease, or unspecified chronic kidney disease; E11.22 Type 2 diabetes mellitus with diabetic chronic kidney disease; N18.9 Chronic kidney disease, unspecified; I50.30 Unspecified diastolic (congestive) heart failure; Z17.0 Estrogen receptor positive status [ER+]; Z88.8 Allergy status to other drugs, medicaments and biological substances
CPT/HCPCS: 36415; 36430; 80053; 80069; 84100; 85014; 85018; 85025; 86850; 86900; 86901; 86923; J7050; P9016

== ENCOUNTER → 2021-08-15 | Outpatient (CLI) | payer MEDICARE | LOC: LAB SHORT 13:26 → LAB 13:26 | DX: N89.8 Other specified noninflammatory disorders of vagina (principal) | CPT/HCPCS: 87070; 87205 ==

== ENCOUNTER 2021-09-07 03:54 | Day surgery (SDC) | payer MEDICARE, OTHER ==
[2021-09-06 14:28] LABS: BASOPHILS ABSOLUTE AUTO 0.02 K/mm3 (0.00-0.23); BASOPHILS PERCENT AUTO 0 % (0-2); EOSINOPHILS ABSOLUTE AUTO 0.01 K/mm3 (0.00-0.68); EOSINOPHILS PERCENT AUTO 0 % (0-6); Hematocrit 20.4 % (33.0-51.0); Hemoglobin 6.4 g/dL (11.5-16.0); IMMATURE GRAN ABSOLUTE AUTO 0.02 K/mm3 (0.00-0.10); IMMATURE GRAN PERCENT AUTO 0 % (0-1); LYMPHOCYTES ABSOLUTE AUTO 0.34 K/mm3 (0.84-5.20); LYMPHOCYTES PERCENT AUTO 7 % (21-46); MONOCYTES ABSOLUTE AUTO 0.56 K/mm3 (0.16-1.47); MONOCYTES PERCENT AUTO 12 % (4-13); Mean Corpuscular HGB 34.8 pg (26.0-34.0); Mean Corpuscular HGB Conc 31.4 g/dL (31.5-36.5); Mean Corpuscular Volume 111 fL (80-100); NEUTROPHILS ABSOLUTE AUTO 3.88 K/mm3 (1.96-9.15); NEUTROPHILS PERCENT AUTO 80 % (41-73); NRBC ABSOLUTE 0.02 K/mm3 (0.00-0.02); NRBC Auto 0.4 /100 WBC (0.0-0.2); Platelet Count 156 K/mm3 (150-400); RDW Coefficient Variation 21.5 % (11.7-14.2); RDW Standard Deviation 86.1 fL (35.1-46.3); Red Blood Cell Count 1.84 M/mm3 (3.80-5.20); White Blood Cell Count 4.83 K/mm3 (4.00-11.30)
[2021-09-06 14:40] LABS: Albumin, Blood 2.6 g/dL (3.4-5.0); Albumin/Globulin Ratio 0.6 (0.8-1.8); Bilirubin, Total 1.5 mg/dL (0.1-1.0); Bun/Creatinine Ratio 14.5 (12.0-20.0); Calcium, Blood 8.3 mg/dL (8.5-10.1); Creatinine, Blood 1.65 mg/dL (0.40-1.00); Globulin, Blood 4.2 g/dL (2.2-4.0); Potassium, Blood 3.2 mmol/L (3.5-5.5); Total Protein, Blood 6.8 g/dL (6.4-8.2)
--- NOTE | 2021-09-07 13:28 | NUR ---
LUNG SOUNDS DECREASED WITH SLIGHT EXP WHEEZE SCATTERED THROUGHOUT.
== END 2021-09-07 17:35 | disposition home or self-care (01) ==
LOC: ATC 03:54 → EDSTATUS 13:00 → ATC 17:35
PROVIDERS: Internal Medicine Hematology & Oncology
DX: D64.9 Anemia, unspecified (principal); C50.919 Malignant neoplasm of unspecified site of unspecified female breast; C79.51 Secondary malignant neoplasm of bone; I11.0 Hypertensive heart disease with heart failure; I50.30 Unspecified diastolic (congestive) heart failure; E11.9 Type 2 diabetes mellitus without complications; E03.9 Hypothyroidism, unspecified; E78.5 Hyperlipidemia, unspecified; J44.9 Chronic obstructive pulmonary disease, unspecified; K21.9 Gastro-esophageal reflux disease without esophagitis
CPT/HCPCS: 36415; 80053; 85025; 86850; 86900; 86901; 86923; J7050; P9016

== ENCOUNTER 2021-11-17 11:27 | Emergency (ER) | payer MEDICARE, OTHER ==
[~2021-11-17] VITALS: Ht 154.9 cm; Wt 108.4 kg
== END 2021-11-17 13:35 | disposition left against medical advice (07) ==
LOC: ER 11:27
DX: Z53.21 Procedure and treatment not carried out due to patient leaving prior to being seen by health care provider (principal)
CPT/HCPCS: 36415; 86850; 86900; 86901; 86923

== ENCOUNTER 2021-11-17 16:21 | Emergency (ER) | payer MEDICARE, OTHER ==
[~2021-11-17] VITALS: Ht 154.9 cm; Wt 108.4 kg
[2021-11-17 18:27] LABS: BASOPHILS ABSOLUTE AUTO 0.02 K/mm3 (0.00-0.23); BASOPHILS PERCENT AUTO 0 % (0-2); EOSINOPHILS ABSOLUTE AUTO 0.01 K/mm3 (0.00-0.68); EOSINOPHILS PERCENT AUTO 0 % (0-6); Hematocrit 19.3 % (33.0-51.0); Mean Corpuscular HGB 35.5 pg (26.0-34.0); Mean Corpuscular HGB Conc 30.6 g/dL (31.5-36.5); Mean Corpuscular Volume 116 fL (80-100); Mean Platelet Volume 10.6 fL (9.1-12.4); Platelet Count 142 K/mm3 (150-400); RDW Coefficient Variation 18.9 % (11.7-14.2); RDW Standard Deviation 78.9 fL (35.1-46.3); Red Blood Cell Count 1.66 M/mm3 (3.80-5.20); White Blood Cell Count 4.56 K/mm3 (4.00-11.30)
[2021-11-17 18:35] LABS: IMMATURE GRAN ABSOLUTE AUTO 0.03 K/mm3 (0.00-0.10); IMMATURE GRAN PERCENT AUTO 1 % (0-1); LYMPHOCYTES ABSOLUTE AUTO 0.33 K/mm3 (0.84-5.20); LYMPHOCYTES PERCENT AUTO 7 % (21-46); MONOCYTES ABSOLUTE AUTO 0.27 K/mm3 (0.16-1.47); MONOCYTES PERCENT AUTO 6 % (4-13); NEUTROPHILS PERCENT AUTO 86 % (41-73)
[2021-11-17 18:36] LABS: Hemoglobin 5.9 g/dL (11.5-16.0)
[2021-11-17 18:38] LABS: Albumin, Blood 2.3 g/dL (3.4-5.0); Albumin/Globulin Ratio 0.5 (0.8-1.8); Bilirubin, Total 1.1 mg/dL (0.1-1.0); Bun/Creatinine Ratio 22.9 (12.0-20.0); Calcium, Blood 8.3 mg/dL (8.5-10.1); Creatinine, Blood 1.53 mg/dL (0.40-1.00); Globulin, Blood 4.8 g/dL (2.2-4.0); Potassium, Blood 4.3 mmol/L (3.5-5.5); Total Protein, Blood 7.1 g/dL (6.4-8.2)
[2021-11-17 22:00] LABS: Calcium, Ionized (POC) 1.11 mmol/L (1.10-1.46); Chloride (POC) 99 mmol/L (98-108); Creatinine (POC) 1.6 mg/dL (0.6-1.0); Glucose (ISTAT POC) 384 mg/dL (70-99); Hemoglobin (POC) 6.8 g/dL (12.0-16.0); Potassium (POC) 4.1 mmol/L (3.5-5.5); Sodium (POC) 137 mmol/L (135-148); Total CO2 (POC) 26 mmol/L (21-32)
== END 2021-11-17 22:42 | disposition home or self-care (01) ==
LOC: ER 16:21
PROVIDERS: Physician Assistant
DX: D64.9 Anemia, unspecified (principal); I13.0 Hypertensive heart and chronic kidney disease with heart failure and stage 1 through stage 4 chronic kidney disease, or unspecified chronic kidney disease; E11.22 Type 2 diabetes mellitus with diabetic chronic kidney disease; N18.30 Chronic kidney disease, stage 3 unspecified; I50.32 Chronic diastolic (congestive) heart failure; E78.5 Hyperlipidemia, unspecified; E03.9 Hypothyroidism, unspecified; Z79.4 Long term (current) use of insulin; Z79.899 Other long term (current) drug therapy
CPT/HCPCS: 36430; 80047; 80053; 85014; 85025; 86850; 86900; 86901; 86923; 94640; 94664; 99283-25; J7030; P9016

== ENCOUNTER 2022-02-14 19:26 | Emergency (ER) | payer MEDICARE, OTHER ==
[~2022-02-14] VITALS: Ht 154.9 cm; Wt 104.3 kg
== END 2022-02-14 21:39 | disposition left against medical advice (07) ==
LOC: ER 19:26
DX: R41.0 Disorientation, unspecified (principal); K59.00 Constipation, unspecified; C50.919 Malignant neoplasm of unspecified site of unspecified female breast; Z53.21 Procedure and treatment not carried out due to patient leaving prior to being seen by health care provider
CPT/HCPCS: 36415; 99281

== ENCOUNTER 2022-05-04 02:18 | Day surgery (SDC) | payer MEDICARE, OTHER ==
[2022-05-02 16:47] LABS: BASOPHILS ABSOLUTE AUTO 0.05 K/mm3 (0.00-0.23); BASOPHILS PERCENT AUTO 1 % (0-2); EOSINOPHILS ABSOLUTE AUTO 0.31 K/mm3 (0.00-0.68); EOSINOPHILS PERCENT AUTO 4 % (0-6); Hematocrit 23.7 % (33.0-51.0); Hemoglobin 7.1 g/dL (11.5-16.0); IMMATURE GRAN ABSOLUTE AUTO 0.02 K/mm3 (0.00-0.10); IMMATURE GRAN PERCENT AUTO 0 % (0-1); LYMPHOCYTES ABSOLUTE AUTO 0.64 K/mm3 (0.84-5.20); LYMPHOCYTES PERCENT AUTO 7 % (21-46); MONOCYTES ABSOLUTE AUTO 0.77 K/mm3 (0.16-1.47); MONOCYTES PERCENT AUTO 9 % (4-13); Mean Corpuscular HGB 29.1 pg (26.0-34.0); Mean Corpuscular Volume 97 fL (80-100); Mean Platelet Volume 10.2 fL (9.1-12.4); NEUTROPHILS ABSOLUTE AUTO 7.19 K/mm3 (1.96-9.15); NEUTROPHILS PERCENT AUTO 80 % (41-73); Platelet Count 224 K/mm3 (150-400); RDW Coefficient Variation 17.3 % (11.7-14.2); Red Blood Cell Count 2.44 M/mm3 (3.80-5.20); White Blood Cell Count 8.98 K/mm3 (4.00-11.30)
[2022-05-02 17:11] LABS: Percent Saturation 13.1 % (15.0-50.0)
== END 2022-05-04 18:34 | disposition home or self-care (01) ==
LOC: ATC 02:18
PROVIDERS: Internal Medicine Hematology & Oncology
DX: C50.919 Malignant neoplasm of unspecified site of unspecified female breast (principal); C79.51 Secondary malignant neoplasm of bone; D50.9 Iron deficiency anemia, unspecified; E78.5 Hyperlipidemia, unspecified; J44.9 Chronic obstructive pulmonary disease, unspecified; K21.9 Gastro-esophageal reflux disease without esophagitis; K74.60 Unspecified cirrhosis of liver; E89.0 Postprocedural hypothyroidism; E11.22 Type 2 diabetes mellitus with diabetic chronic kidney disease; I12.9 Hypertensive chronic kidney disease with stage 1 through stage 4 chronic kidney disease, or unspecified chronic kidney disease; N18.9 Chronic kidney disease, unspecified; Z17.0 Estrogen receptor positive status [ER+]; Z90.13 Acquired absence of bilateral breasts and nipples; Z79.82 Long term (current) use of aspirin; Z88.8 Allergy status to other drugs, medicaments and biological substances
CPT/HCPCS: 36415; 36430; 82728; 83540; 83550; 85025; 86850; 86900; 86901; 86923; J7040; P9016

== ENCOUNTER 2022-05-07 00:32 | Day surgery (SDC) | payer MEDICARE, OTHER | END 2022-05-07 23:03 | disposition home or self-care (01) | LOC: WOUND 00:32 | DX: E11.622 Type 2 diabetes mellitus with other skin ulcer (principal); I87.313 Chronic venous hypertension (idiopathic) with ulcer of bilateral lower extremity; I87.2 Venous insufficiency (chronic) (peripheral); E11.51 Type 2 diabetes mellitus with diabetic peripheral angiopathy without gangrene; L97.822 Non-pressure chronic ulcer of other part of left lower leg with fat layer exposed; L97.122 Non-pressure chronic ulcer of left thigh with fat layer exposed; C50.919 Malignant neoplasm of unspecified site of unspecified female breast; C79.9 Secondary malignant neoplasm of unspecified site; Z88.8 Allergy status to other drugs, medicaments and biological substances; E78.2 Mixed hyperlipidemia; N18.9 Chronic kidney disease, unspecified; F32.A Depression, unspecified | CPT/HCPCS: A9270; G0463 ==

== ENCOUNTER → 2022-05-30 | Outpatient (CLI) | payer MEDICARE ==
[2022-05-31 17:06] LABS: Creatinine, Urine Random 32.4 mg/dL (27.00-270.00); Protein, Urine Random 55.7 mg/dL (0.0-11.9); Protein/Creat Ratio, Ur Random 1.7
== END ==
LOC: LAB SHORT 22:56 → LAB 22:56
PROVIDERS: Internal Medicine Nephrology
DX: N18.32 Chronic kidney disease, stage 3b (principal)
CPT/HCPCS: 82570; 84156

== ENCOUNTER → 2022-05-30 | Outpatient (CLI) | payer MEDICARE ==
[2022-06-04 13:49] LABS: Stool Occult Blood Guaiac 1 Pos (Neg)
[2022-06-04 13:50] LABS: Stool Occult Blood Guaiac 2 Pos (Neg)
[2022-06-04 13:51] LABS: Stool Occult Blood Guaiac 3 Pos (Neg)
== END ==
LOC: LAB SHORT 10:43 → LAB 10:43
PROVIDERS: Internal Medicine
DX: D64.9 Anemia, unspecified (principal)
CPT/HCPCS: 82270

== ENCOUNTER 2022-07-03 00:21 | Day surgery (SDC) | payer MEDICARE | END 2022-07-03 23:01 | disposition home or self-care (01) | LOC: WOUND 00:21 | DX: E11.622 Type 2 diabetes mellitus with other skin ulcer (principal); I87.313 Chronic venous hypertension (idiopathic) with ulcer of bilateral lower extremity; I87.2 Venous insufficiency (chronic) (peripheral); E11.51 Type 2 diabetes mellitus with diabetic peripheral angiopathy without gangrene; L97.822 Non-pressure chronic ulcer of other part of left lower leg with fat layer exposed; L97.122 Non-pressure chronic ulcer of left thigh with fat layer exposed; S81.802A Unspecified open wound, left lower leg, initial encounter | CPT/HCPCS: A9270; G0463 ==

== ENCOUNTER 2022-07-27 01:06 | Day surgery (SDC) | payer MEDICARE, OTHER ==
--- NOTE | 2022-07-27 17:33 | NUR ---
Pt incontinent of urine at end of 2nd unit of PRBC. Bri care done and new brief and clean pants put on with assistance from two RNs. Pt's family here to take her home. Pt able to stand and pivot from BSC to .
== END 2022-07-27 17:30 | disposition home or self-care (01) ==
LOC: ATC 01:06
DX: C50.919 Malignant neoplasm of unspecified site of unspecified female breast (principal); D63.0 Anemia in neoplastic disease; I10 Essential (primary) hypertension; E11.9 Type 2 diabetes mellitus without complications; E03.9 Hypothyroidism, unspecified; K74.60 Unspecified cirrhosis of liver; E78.5 Hyperlipidemia, unspecified
CPT/HCPCS: 36415; 86850; 86900; 86901; 86923; J7040; P9016

== ENCOUNTER → 2022-08-01 | Outpatient (CLI) | payer MEDICARE, OTHER | LOC: LAB SHORT 13:45 | DX: L08.9 Local infection of the skin and subcutaneous tissue, unspecified (principal) | CPT/HCPCS: 87070; 87077; 87186; 87205 ==

== ENCOUNTER → 2022-08-23 | Outpatient (CLI) | payer MEDICARE, OTHER | END | disposition home or self-care (01) | LOC: LAB SHORT 16:00 | DX: Z48.817 Encounter for surgical aftercare following surgery on the skin and subcutaneous tissue (principal); L97.122 Non-pressure chronic ulcer of left thigh with fat layer exposed; L08.9 Local infection of the skin and subcutaneous tissue, unspecified | CPT/HCPCS: 87070; 87205 ==

== ENCOUNTER → 2022-08-29 | Outpatient (CLI) | payer MEDICARE, OTHER | LOC: LAB 14:15 → LAB SHORT 14:15 | DX: Z48.817 Encounter for surgical aftercare following surgery on the skin and subcutaneous tissue (principal); L97.122 Non-pressure chronic ulcer of left thigh with fat layer exposed ==

== ENCOUNTER → 2022-09-06 | Outpatient (CLI) | payer MEDICARE | LOC: LAB 15:00 → LAB SHORT 15:00 | DX: L08.9 Local infection of the skin and subcutaneous tissue, unspecified (principal); L97.122 Non-pressure chronic ulcer of left thigh with fat layer exposed | CPT/HCPCS: 87070; 87205 ==

== ENCOUNTER → 2022-09-06 | Outpatient (CLI) | payer MEDICARE ==
[2022-09-06 15:53] LABS: BASOPHILS ABSOLUTE AUTO 0.04 K/mm3 (0.00-0.23); BASOPHILS PERCENT AUTO 0 % (0-2); EOSINOPHILS ABSOLUTE AUTO 0.19 K/mm3 (0.00-0.68); EOSINOPHILS PERCENT AUTO 2 % (0-6); Hematocrit 29.6 % (33.0-51.0); Hemoglobin 9.2 g/dL (11.5-16.0); IMMATURE GRAN ABSOLUTE AUTO 0.02 K/mm3 (0.00-0.10); IMMATURE GRAN PERCENT AUTO 0 % (0-1); LYMPHOCYTES ABSOLUTE AUTO 0.55 K/mm3 (0.84-5.20); LYMPHOCYTES PERCENT AUTO 6 % (21-46); MONOCYTES ABSOLUTE AUTO 0.55 K/mm3 (0.16-1.47); MONOCYTES PERCENT AUTO 6 % (4-13); Mean Corpuscular HGB 28.9 pg (26.0-34.0); Mean Corpuscular HGB Conc 31.1 g/dL (31.5-36.5); Mean Corpuscular Volume 93 fL (80-100); Mean Platelet Volume 9.9 fL (9.1-12.4); NEUTROPHILS ABSOLUTE AUTO 7.58 K/mm3 (1.96-9.15); NEUTROPHILS PERCENT AUTO 85 % (41-73); Platelet Count 216 K/mm3 (150-400); RDW Coefficient Variation 18.6 % (11.7-14.2); RDW Standard Deviation 63.8 fL (35.1-46.3); Red Blood Cell Count 3.18 M/mm3 (3.80-5.20); White Blood Cell Count 8.93 K/mm3 (4.00-11.30)
[2022-09-06 16:07] LABS: International Normalized Ratio 1.08; Prothrombin Time Results 11.3 Sec (9.7-11.5)
[2022-09-06 17:37] LABS: Albumin, Blood 2.2 g/dL (3.4-5.0); Albumin/Globulin Ratio 0.5 (0.8-1.8); Bilirubin, Direct 0.3 mg/dL (0.0-0.3); Bilirubin, Indirect 0.3 mg/dL (0.1-0.7); Bilirubin, Total 0.6 mg/dL (0.1-1.0); Calcium, Blood 8.4 mg/dL (8.5-10.1); Globulin, Blood 4.4 g/dL (2.2-4.0); Potassium, Blood 4.4 mmol/L (3.5-5.5); Total Protein, Blood 6.6 g/dL (6.4-8.2)
[2022-09-06 17:39] LABS: Albumin, Blood 2.2 g/dL (3.4-5.0); Albumin/Globulin Ratio 0.5 (0.8-1.8); Bilirubin, Total 0.6 mg/dL (0.1-1.0); Bun/Creatinine Ratio 22.4 (12.0-20.0); Calcium, Blood 8.7 mg/dL (8.5-10.1); Creatinine, Blood 1.65 mg/dL (0.40-1.00); Globulin, Blood 4.6 g/dL (2.2-4.0); Potassium, Blood 4.4 mmol/L (3.5-5.5); Total Protein, Blood 6.8 g/dL (6.4-8.2)
[2022-09-06 18:08] LABS: Bun/Creatinine Ratio 22.6 (12.0-20.0); Creatinine, Blood 1.59 mg/dL (0.40-1.00); Thyroid Stimulating Hormone 5.2 uIU/mL (0.360-4.800)
== END | disposition home or self-care (01) ==
LOC: LAB 14:04 → LAB SHORT 14:04 → LAB FUT 05-30 09:45
PROVIDERS: Internal Medicine; Internal Medicine Gastroenterology
DX: E11.22 Type 2 diabetes mellitus with diabetic chronic kidney disease (principal); N18.32 Chronic kidney disease, stage 3b; E03.9 Hypothyroidism, unspecified; D63.1 Anemia in chronic kidney disease; K74.60 Unspecified cirrhosis of liver
CPT/HCPCS: 36415; 80048; 80053; 80076; 82248; 83036; 84443; 85025; 85610

== ENCOUNTER → 2022-09-07 | Outpatient (CLI) | payer MEDICARE ==
[2022-09-07 19:50] LABS: Creatinine, Urine Random 85.7 mg/dL (27.00-270.00)
[2022-09-07 19:53] LABS: Microalb/Creat Ratio UR, Rand 196.033 mg/g (0.000-30.000)
== END | disposition home or self-care (01) ==
LOC: LAB 16:11 → LAB SHORT 16:11
PROVIDERS: Internal Medicine
DX: E11.22 Type 2 diabetes mellitus with diabetic chronic kidney disease (principal); N18.32 Chronic kidney disease, stage 3b; D63.1 Anemia in chronic kidney disease; E03.9 Hypothyroidism, unspecified
CPT/HCPCS: 82043; 82570

== ENCOUNTER → 2022-11-14 | Outpatient (CLI) | payer MEDICARE, OTHER ==
[2022-11-14 16:48] LABS: Source, Urine Voided
[2022-11-14 17:27] LABS: Appearance, Urine Clear (Clear); Bilirubin, Urine Neg (Neg); Blood, Urine Neg (Neg); Color, Urine Yellow (P-Yellow); Glucose Qualitative, Urine Neg (Neg); Ketones, Urine Neg (Neg); Leukocyte Esterase, Urine 1+ (Neg); Nitrite, Urine Neg (Neg); Protein, Urine 2+ (Neg); Specific Gravity, Urine 1.015 (1.003-1.022); Urobilinogen, Urine NORM (Normal)
[2022-11-14 17:41] LABS: Bacteria Few /hpf; Red Blood Cells, Urine 0-2 /hpf (0-2); Squamous Epithelial Cells Few /hpf (Few)
== END | disposition home or self-care (01) ==
LOC: LAB SHORT 16:45
PROVIDERS: Physician Assistant
DX: R35.0 Frequency of micturition (principal)
CPT/HCPCS: 81001

== ENCOUNTER → 2023-09-10 | Outpatient (CLI) | payer MEDICARE, OTHER | LOC: PLD 15:08 → LAB SHORT 15:08 | DX: D48.5 Neoplasm of uncertain behavior of skin (principal) | CPT/HCPCS: 87071; 87075; 87076; 87205 ==

== ENCOUNTER → 2023-09-19 | Outpatient (CLI) | payer MEDICARE, OTHER | LOC: LAB 12:13 → LAB SHORT 12:13 | DX: L08.0 Pyoderma (principal) | CPT/HCPCS: 87070; 87205 ==

== ENCOUNTER → 2024-01-16 | Outpatient (CLI) | payer MEDICARE, OTHER | LOC: LAB 18:15 → LAB SHORT 18:15 | DX: L08.9 Local infection of the skin and subcutaneous tissue, unspecified (principal); S31.829S Unspecified open wound of left buttock, sequela; L89.323 Pressure ulcer of left buttock, stage 3; Z71.3 Dietary counseling and surveillance | CPT/HCPCS: 87070; 87205 ==

== ENCOUNTER → 2024-02-12 | Outpatient (CLI) | payer MEDICARE, OTHER | LOC: LAB SHORT 15:46 → LAB 15:46 | DX: L08.9 Local infection of the skin and subcutaneous tissue, unspecified (principal) | CPT/HCPCS: 87070; 87205 ==

== ENCOUNTER 2024-04-27 14:14 | Emergency (ER) | payer MEDICARE, OTHER ==
[~2024-04-27] VITALS: Ht 170.2 cm; Wt 83.9 kg
[2024-04-27 15:41] LABS: BASOPHILS PERCENT AUTO 1 % (0-2); EOSINOPHILS PERCENT AUTO 2 % (0-6); Hematocrit 38.2 % (33.0-51.0); Hemoglobin 11.3 g/dL (11.5-16.0); IMMATURE GRAN ABSOLUTE AUTO 0.12 K/mm3 (0.00-0.10); IMMATURE GRAN PERCENT AUTO 1 % (0-1); LYMPHOCYTES ABSOLUTE AUTO 0.63 K/mm3 (0.84-5.20); LYMPHOCYTES PERCENT AUTO 5 % (21-46); MONOCYTES ABSOLUTE AUTO 0.71 K/mm3 (0.16-1.47); MONOCYTES PERCENT AUTO 5 % (4-13); Mean Corpuscular HGB 27.5 pg (26.0-34.0); Mean Corpuscular HGB Conc 29.6 g/dL (31.5-36.5); Mean Corpuscular Volume 93 fL (80-100); Mean Platelet Volume 9.7 fL (9.1-12.4); NEUTROPHILS ABSOLUTE AUTO 11.71 K/mm3 (1.96-9.15); NEUTROPHILS PERCENT AUTO 87 % (41-73); NRBC ABSOLUTE 0.05 K/mm3 (0.00-0.02); NRBC Auto 0.4 /100 WBC (0.0-0.2); Platelet Count 169 K/mm3 (150-400); RDW Coefficient Variation 21.1 % (11.7-14.2); RDW Standard Deviation 70.7 fL (35.1-46.3); Red Blood Cell Count 4.11 M/mm3 (3.80-5.20); White Blood Cell Count 13.47 K/mm3 (4.00-11.30)
[2024-04-27 16:01] LABS: Albumin, Blood 2.3 g/dL (3.4-5.0); Albumin/Globulin Ratio 0.5 (0.8-1.8); Bilirubin, Total 1.8 mg/dL (0.1-1.0); Bun/Creatinine Ratio 17.7 (12.0-20.0); Calcium, Blood 8.6 mg/dL (8.5-10.1); Creatinine, Blood 4.02 mg/dL (0.40-1.00); Globulin, Blood 4.2 g/dL (2.2-4.0); Potassium, Blood 4.1 mmol/L (3.5-5.5); Thyroid Stimulating Hormone 1.93 uIU/mL (0.360-4.800); Total Protein, Blood 6.5 g/dL (6.4-8.2)
[2024-04-27 16:05] LABS: Source, Urine Straight Cath
[2024-04-27 16:23] LABS: Appearance, Urine Clear (Clear); Bilirubin, Urine Neg (Neg); Blood, Urine Neg (Neg); Color, Urine Yellow (P-Yellow); Glucose Qualitative, Urine Neg (Neg); Ketones, Urine Neg (Neg); Leukocyte Esterase, Urine 1+ (Neg); Nitrite, Urine Neg (Neg); Protein, Urine Neg (Neg); Urobilinogen, Urine 1+ (Normal)
[2024-04-27 16:31] LABS: Amorphous Light (0-Heavy); Bacteria Many /hpf; Red Blood Cells, Urine 0-2 /hpf (0-2); Squamous Epithelial Cells Mod /hpf (Few)
[2024-04-27 16:47] LABS: Influenza A, PCR NEGATIVE (NEGATIVE); Influenza B, PCR NEGATIVE (NEGATIVE); Resp Syncytial Virus, PCR NEGATIVE (NEGATIVE); SARS-Cov-2 (COVID-19) PCR, MMC NEGATIVE (NEGATIVE)
[2024-04-27] MEDS ORDERED: CefTRIAXone Sodium 1,000 MG in NS 50 ML IV ONE (17:55)
[2024-04-27] MEDS ORDERED: CEPH500 PO (18:57)
[2024-04-27 19:15] VITALS: BP 94/62
== END 2024-04-27 19:42 | disposition home or self-care (01) ==
LOC: ER 14:14
PROVIDERS: Emergency Medicine
DX: N39.0 Urinary tract infection, site not specified (principal); I13.0 Hypertensive heart and chronic kidney disease with heart failure and stage 1 through stage 4 chronic kidney disease, or unspecified chronic kidney disease; I50.32 Chronic diastolic (congestive) heart failure; E11.22 Type 2 diabetes mellitus with diabetic chronic kidney disease; N18.30 Chronic kidney disease, stage 3 unspecified; E78.5 Hyperlipidemia, unspecified; E89.0 Postprocedural hypothyroidism; C50.919 Malignant neoplasm of unspecified site of unspecified female breast; C79.51 Secondary malignant neoplasm of bone; Z90.49 Acquired absence of other specified parts of digestive tract; Z90.13 Acquired absence of bilateral breasts and nipples; Z88.8 Allergy status to other drugs, medicaments and biological substances; Z79.4 Long term (current) use of insulin; Z79.84 Long term (current) use of oral hypoglycemic drugs; Z79.82 Long term (current) use of aspirin; Z79.890 Hormone replacement therapy; Z79.899 Other long term (current) drug therapy
CPT/HCPCS: 0241U; 80053; 81001; 82140; 82947; 84443; 85025; 87086; 96365; 99285-25; J0696; P9612

== ENCOUNTER 2024-04-30 07:47 | Observation (INO) | payer MEDICARE, OTHER ==
[~2024-04-30] VITALS: Ht 157.5 cm; Wt 81.7 kg
[~2024-04-30 07:47] MED LIST changes: +CEPH500 PO
[2024-04-30 08:07] LABS: BASOPHILS ABSOLUTE AUTO 0.05 K/mm3 (0.00-0.23); BASOPHILS PERCENT AUTO 0 % (0-2); Bicarbonate Venous 16.6 mmol/L (24.0-30.0); EOSINOPHILS ABSOLUTE AUTO 0.08 K/mm3 (0.00-0.68); EOSINOPHILS PERCENT AUTO 1 % (0-6); Hematocrit 29.7 % (33.0-51.0); Hemoglobin 8.8 g/dL (11.5-16.0); IMMATURE GRAN ABSOLUTE AUTO 0.11 K/mm3 (0.00-0.10); IMMATURE GRAN PERCENT AUTO 1 % (0-1); LYMPHOCYTES ABSOLUTE AUTO 0.67 K/mm3 (0.84-5.20); LYMPHOCYTES PERCENT AUTO 5 % (21-46); MONOCYTES ABSOLUTE AUTO 0.88 K/mm3 (0.16-1.47); MONOCYTES PERCENT AUTO 7 % (4-13); Mean Corpuscular HGB 27.3 pg (26.0-34.0); Mean Corpuscular HGB Conc 29.6 g/dL (31.5-36.5); Mean Corpuscular Volume 92 fL (80-100); Mean Platelet Volume 10.5 fL (9.1-12.4); NEUTROPHILS ABSOLUTE AUTO 10.77 K/mm3 (1.96-9.15); NEUTROPHILS PERCENT AUTO 86 % (41-73); NRBC Auto 0.8 /100 WBC (0.0-0.2); PCO2 Venous 26.8 mmHg (38-42); Platelet Count 166 K/mm3 (150-400); RDW Coefficient Variation 21.4 % (11.7-14.2); RDW Standard Deviation 70.2 fL (35.1-46.3); Red Blood Cell Count 3.22 M/mm3 (3.80-5.20); White Blood Cell Count 12.56 K/mm3 (4.00-11.30); pH Blood Venous 7.35 (7.34-7.37)
[2024-04-30 08:27] LABS: Albumin, Blood 1.9 g/dL (3.4-5.0); Albumin/Globulin Ratio 0.5 (0.8-1.8); Bilirubin, Total 2.2 mg/dL (0.1-1.0); Bun/Creatinine Ratio 17.5 (12.0-20.0); Calcium, Blood 7.7 mg/dL (8.5-10.1); Creatinine, Blood 5.26 mg/dL (0.40-1.00); Globulin, Blood 3.9 g/dL (2.2-4.0); Potassium, Blood 5.3 mmol/L (3.5-5.5); Total Protein, Blood 5.8 g/dL (6.4-8.2)
[2024-04-30 08:44] LABS: Free Thyroxine 0.92 ng/dL (0.70-1.60)
[2024-04-30] MEDS ORDERED: AMLO5 PO (10:03)
[2024-04-30] MEDS ORDERED: ATOR40TA PO (10:03)
[2024-04-30] MEDS ORDERED: OXAYDO5 M1 PO (10:04)
[2024-04-30] MEDS ORDERED: RIFA550T2 PO (10:04)
[2024-04-30 12:00] VITALS: BP 124/44
[2024-04-30] MEDS ORDERED: Ondansetron HCl 2 MG / ML 2ML Vial IV PRN (13:00)
[2024-04-30] MEDS ORDERED: Morphine Sulfate 20 MG/1ML 1 ML Oral Syringe SL PRN (13:00)
--- NOTE | 2024-04-30 14:51 | NUR ---
PATIENT ARRIVED TO FLOOR VIA GURNEY. TRANSFERRED TO FLOOR BED VIA LIFT SHEET BY SLIDING. PATIENT WITH LABORED BREATHING. ROXANOL ADMINISTERED AND O2 @ 2LPM/NC. ROUSES TO PAINFUL STIMULI ONLY; EYE FLUTTERS AND GRUNTS. MOUTH RINSED WITH ORAL SWABS; BLUE RESIDUE PRESENT IN OP. EX-, ZAKI, AT BEDSIDE.
--- NOTE | 2024-04-30 15:38 | NUR ---
PATIENT SLEEPING. FAMILY AT BEDSIDE. CALL TO PALLIATIVE CARE FOR CONSULT. BED IN LOWEST POSITION. CALL LIGHT WITHIN REACH.
--- NOTE | 2024-04-30 18:50 | NUR ---
END OF SHIFT SUMMARY: RESPONSIVE TO PAINFUL STIMULI, ONLY. BEDREST. NO INTAKE OR OUTPUT THIS EVENING. FAMILY REPORTS NOT HAVING ANY INTAKE x3 DAYS AND WONDERING IF SHE LL GET SOMETHING BY TUBE. EDUCATION PROVIDED REGARDING END-OF-LIFE AND PATIENT S WISHES TO NOT HAVE LIFE-SUSTAINING TREATMENT IN THE EVENT SHE IS UNABLE TO MAKE DECISIONS FOR HERSELF AND IMMINENT, SUCH THE CASE, NOW. ROGE GIVEN x1 FOR LABORED BREATHING. LOTS OF FAMILY AT BEDSIDE. REQUEST TO CHARGE NURSE FOR BIGGER ROOM TO ACCOMMODATE MULTIPLE VISITORS. BED IN LOWEST POSITION. CALL LIGHT WITHIN REACH. ALL NEEDS MET. REPORT TO ONCOMING NURSE.
--- NOTE | 2024-05-01 02:57 | NUR ---
SHIFT SUMMARY PT IS ON COMFORT CARE. FAMILY BY THE BEDSIDE. MEDICATED ORDERED FOR AIR HUNGER AND PAIN.
[2024-05-01] MEDS ORDERED: Scopolamine Hydrobromide Patch TD PRN (08:45)
--- NOTE | 2024-05-01 16:28 | NUR ---
PATIENT'S FAMILY MEMBER APPROACHED TAR DISTILLATION SUPERVISOR AND INFORMED ACC AND CHARGE THAT PATIENT HAD . THIS RN CONFIRMED ABSENCE OF HEART TONES. SECOND RN VERIFICATION PROVIDED BY GADIEL MERA RN.
--- NOTE | 2024-05-01 16:50 | NUR ---
The patient peacefully at 1625 with loved ones surrounding her. Condolences, and list given. Family state they're waiting for her (ex) to arrive before choosing a mortuary. Both bedside RN and IMAGING ACCOUNT MANAGER are aware.
--- NOTE | 2024-05-01 16:56 | NUR ---
"Spiritual Care Attempted | EOL At a staff members request this insulator tester visited the family of Pt. who had passed. Family present were mourning greatly. Offers of spiritual support were graciously declined. Will remain available to the family."
--- NOTE | 2024-05-01 19:55 | NUR ---
DR LAM NOTIFIED OF PATIENT'S PASSING AT 1715 BY CHARGE NURSE, MARTA ALEXANDER RN. FAMILY AT PATIENT BSIDE UNTIL 191.
== END 2024-05-01 16:25 ==
LOC: ER 07:47 → MEDS 12:56
PROVIDERS: Student in an Organized Health Care Education/Training Program; ADMIT Hospitalist
DX: G92.8 Other toxic encephalopathy (principal); Z51.5 Encounter for palliative care; I13.2 Hypertensive heart and chronic kidney disease with heart failure and with stage 5 chronic kidney disease, or end stage renal disease; E11.22 Type 2 diabetes mellitus with diabetic chronic kidney disease; N18.5 Chronic kidney disease, stage 5; I50.32 Chronic diastolic (congestive) heart failure; N17.9 Acute kidney failure, unspecified; J44.9 Chronic obstructive pulmonary disease, unspecified; C50.919 Malignant neoplasm of unspecified site of unspecified female breast; C79.51 Secondary malignant neoplasm of bone; E89.0 Postprocedural hypothyroidism; K21.9 Gastro-esophageal reflux disease without esophagitis; F41.1 Generalized anxiety disorder; E78.5 Hyperlipidemia, unspecified; F32.9 Major depressive disorder, single episode, unspecified; E66.01 Morbid (severe) obesity due to excess calories; Z68.32 Body mass index [BMI] 32.0-32.9, adult; Z66 Do not resuscitate; Z79.84 Long term (current) use of oral hypoglycemic drugs; Z79.82 Long term (current) use of aspirin; Z79.4 Long term (current) use of insulin; Z79.899 Other long term (current) drug therapy; Z88.8 Allergy status to other drugs, medicaments and biological substances; Z90.13 Acquired absence of bilateral breasts and nipples; Z90.49 Acquired absence of other specified parts of digestive tract; Z90.710 Acquired absence of both cervix and uterus
CPT/HCPCS: 70450; 71045; 80053; 82140; 82803; 83735; 84439; 84443; 85025; 93005; 93010; 99285-25; A9270